=== PATIENT | male | born 1950 | race Caucasian/White ===

== ENCOUNTER 2016-07-17 20:31 | Observation (INO) | payer OTHER ==
[~2016-07-17] VITALS: Ht 175.3 cm; Wt 107.0 kg
[~2016-07-17 20:31] MED LIST: ANTIVERT 25 MG25 MG PO; DILTIAZEM HCL360 M1 PO; LISINOPRIL-HCT1 EAC2 PO; METOPROLOL SUCC50 MG PO; ZOFRAN ODT4 MG PO
--- NOTE | 2016-07-17 20:57 | NUR ---
TRIAGE; PT TO ED C/O CP AT AROUND 750PM, WAS AT A MEETING, AND STARTED TO FEEL PAIN IN THE CENTER OF HIS CHEST. DENIES ANY N/V. HAD SOME SOB AT THE TIME, STILL HAS SOME NOW UPON EXERTION.
--- NOTE | 2016-07-17 21:00 | NUR ---
MANUAL BP 184/114
--- NOTE | 2016-07-17 21:11 | NUR ---
PT TO XRAY AT THIS TIME VIA WHEELCHAIR.
[2016-07-17 21:27] LABS: ABSOLUTE BASOPHIL COUNT 0.1 /CUMM (0.0-0.2); ABSOLUTE EOSINOPHIL COUNT 0.2 /CUMM (0.0-0.7); ABSOLUTE GRANULOCYTE CT 6.5 /CUMM (1.4-6.5); ABSOLUTE LYMPH COUNT 2.7 /CUMM (1.2-3.4); ABSOLUTE MONOCYTE COUNT 0.9 /CUMM (0.10-0.60); BASOPHIL % 0.9 % (0.0-2.0); EOSINOPHIL % 2.1 % (0-5); GRANULOCYTE % 62.6 % (42.2-75.2); HEMATOCRIT 44.1 % (42-52); MEAN CORPUSCULAR HGB 28.5 PG (27.0-31.0); MEAN CORPUSCULAR HGB CONC 33.3 G/DL (33.0-37.0); MEAN CORPUSCULAR VOLUME 85.5 FL (80.0-94.0); MEAN PLATELET VOLUME 7.6 FL (7.4-10.4); PLATELET COUNT 313 /CUMM (130-400); RBC DISTRIBUTION WIDTH 14.6 % (11.5-14.5); RED BLOOD CELL CT 5.16 /CUMM (4.70-6.10); WHITE BLOOD CELL COUNT 10.4 /CUMM (4.8-10.8)
--- NOTE | 2016-07-17 21:27 | NUR ---
PT RETURNED TO ROOM. DENIES CP AT THIS TIME. PT ON HEART MONITOR.
--- NOTE | 2016-07-17 21:37 | NUR ---
RUBA MONTANO AT BEDSIDE FOR EVAL.
--- NOTE | 2016-07-17 21:40 | ED CARDIAC/CP/PALPITATIONS ---
History of Present Illness General Chief Complaint: Chest Pain Stated Complaint: CHEST PAIN Source: patient Exam Limitations: no limitations Vital Signs & Intake/Output Vital Signs & Intake/Output Vital Signs Date Time Temp Pulse Resp B/P Pulse O2 O2 Flow FiO2 Ox Delivery Rate 07/17 2317 67 18 160/88 97 Room Air 07/17 2132 66 190/102 98 Room Air 07/17 2100 99.5 70 18 184/114 97 Room Air ED Intake and Output 07/18 0000 07/17 1200 Intake Total 0 Output Total Balance 0 Intake, Oral 0 Allergies Coded Allergies: Penicillins (Intermediate, HIVES 09/05/15) Reconcile Medications DILTIAZEM HCL (Diltiazem 24HR Cd) 360 MG CAP.ER.24H 1 CAP PO DAILY HEART ( Reported) Lisinopril/Hydrochlorothiazide (Lisinopril-Hctz 10-12.5 MG Tab) 10 MG-12.5 MG TABLET 1 TAB PO DAILY HEART/BP (Reported) Metoprolol Succinate 50 MG TAB.ER.24H 1 TAB PO DAILY HEART (Reported) Naproxen Sodium (Aleve) 220 MG CAPSULE 2 CAP PO DAILY PAIN/INFLAMMATION ( Reported) Triamcinolone Acetonide 0.025 % CREAM..G. 1 MICHAEL TOP BID SCALP (Reported) apply to affected area(s) Triage Note: TRIAGE; PT TO ED C/O CP AT AROUND 750PM, WAS AT A MEETING, AND STARTED TO FEEL PAIN IN THE CENTER OF HIS CHEST. DENIES ANY N/V. HAD SOME SOB AT THE TIME, STILL HAS SOME NOW UPON EXERTION. Triage Nurses Notes Reviewed? yes Onset: Abrupt Duration: better Timing: single episode today Quality/Severity: pressure Location: substernal Radiation: no radiation Activities at Onset: none HPI: Patient is a 66-year-old male with a past medical history of hypertension who is compliant with his medications who presents the emergency room stating that 90 minutes prior to arrival while at rest at a meeting he had acute onset of chest heaviness lightheaded sensation, PALE complexion nausea and dizziness. Patient states that the chest heaviness has improved from 8 out of 10 to currently 4/10 and all other symptoms have resolved. No aspirin was administered today. Patient did not take any medications for his symptoms. Patient denies any smoking history Denies any coronary artery disease history (CHARMAINE YEH,MARIA INES) Past History Travel History Traveled to [place] past 21 day No Medical History Any Pertinent Medical History? 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 No (MARIA INES SILVA) Review of Systems Review of Systems Constitutional: Reports: no symptoms. EENTM: Reports: no symptoms. Respiratory: Reports: see HPI. Cardiovascular: Reports: see HPI, chest pain. GI: Reports: no symptoms. Genitourinary: Reports: no symptoms. Musculoskeletal: Reports: no symptoms. Skin: Reports: no symptoms. Neurological/Psychological: Reports: no symptoms. Hematologic/Endocrine: Reports: no symptoms. Immunologic/Allergic: Reports: no symptoms. All Other Systems: Reviewed and Negative (MARIA INES SILVA) Physical Exam Physical Exam General Appearance: no apparent distress, alert, comfortable Cardiovascular: regular rate/rhythm Comments: Well-developed well-nourished person in no acute distress HEENT: Normal EENT exam, Neck: Supple, no lymphadenopathy, normal range of motion without pain or tenderness Back: Nontender, no CVA tenderness. Cardiovascular: Regular rate and rhythms no murmurs rubs or gallops, normal JVP Respiratory: Chest nontender. No respiratory distress.breath sounds clear to auscultation bilaterally Abdomen: Soft, nontender nondistended, no appreciable organomegaly. Normal bowel sounds. No ascites Extremity: No edema, no calf tenderness to palpation, normal and equal pulses. Neuro: Alert oriented x3, motor sensory normal, Skin: No appreciable rash on exposed skin, skin is warm and dry. Psych: Mood and affect is normal, memory and judgment is normal. Core Measures ACS in differential dx? Yes ASA ordered for poss ACS? Yes-ordered Severe Sepsis Present: No Septic Shock Present: No (MARIA INES SILVA) Progress Differential Diagnosis: AMI, aortic dissection, atrial fibrillation, cholecystitis, CHF/pulm edema, costochondritis, hyperkalemia, hypovolemia, hyperthyroid, hyperventilation, intracranial hemorrhage, musculoskeletal pain, myocarditis, pancreatitis, pericarditis, pneumonia, pneumothorax, PSVT, pulmonary embolism, PUD/GERD, PVCs/PACs, respiratory failure, rib fracture, sepsis, unstable angina, V-fib/V-Tach, WPW syndrome Plan of Care: Orders Procedure Date/time Status Heart Healthy Diet 07/18 B Active TROPONIN LEVEL 07/18 0900 Active EKG 07/18 0900 Active ECHOCARDIOGRAM 07/18 0800 Active PHOSPHORUS 07/18 0600 Active MAGNESIUM 07/18 0600 Active LIPID PANEL 07/18 0600 Active CBC WITHOUT DIFFERENTIAL 07/18 0600 Active BASIC ELECTROLYTES PLUS BUN&CR 07/18 0600 Active TROPONIN LEVEL 07/18 0300 Active EKG 07/18 0300 Active Pathway - chart 07/18 0057 Active Admit to inpatient 07/18 0056 Active Pathway - chart 07/18 0055 Active House Staff 07/18 0055 Active Patient Data 07/18 0055 Active Code Status 07/18 0055 Active Misc Message 07/18 0025 Active ED Holding Orders 07/18 0025 Active Vital Signs 07/18 0025 Active Code Status 07/18 0025 Complete VTE Mechanical Prophylaxis 07/18 UNK Active MISTAKE 07/18 UNK Active Telemetry/Transplant Nurse Practitioner 07/18 UNK Active Patient Data 07/17 2315 Active Add-on Test (ER Only) 07/17 2139 Active THYROID STIMULATING HORMONE 07/17 2110 Complete THYROXINE 07/17 2110 Complete MAGNESIUM 07/17 2110 Complete TROPONIN LEVEL 07/17 2057 Complete COMPREHENSIVE METABOLIC PANEL 07/17 2057 Complete CBC WITHOUT DIFFERENTIAL 07/17 2057 Complete EKG 07/17 2033 Active Current Medications Sig/Maggie Start time Last Medication Dose Stop Time Status Admin Diltiazem HCl 360 MG DAILY 07/18 1000 UNVr (Cardizem CD) Enoxaparin Sodium 40 MG DAILY 07/18 1000 UNVr (Lovenox) Lisinopril 10 MG DAILY 07/18 1000 UNVr (Prinivil) Metoprolol Succinate 50 MG DAILY 07/18 1000 UNVr (Toprol XL) Naproxen 500 MG DAILY 07/18 1000 UNVr (Naprosyn) Acetaminophen 650 MG Q6P PRN 07/18 99 UNVr (Tylenol) Oxycodone/ 1 TAB Q6P PRN 07/18 99 UNVr Acetaminophen (Percocet) Oxycodone/ 2 TAB Q6P PRN 07/18 0100 UNVr Acetaminophen (Percocet) Laboratory Tests 07/17/16 2111: Anion Gap 14, Estimated GFR > 60, BUN/Creatinine Ratio 19.2, Glucose 103 H, Calcium 9.7, Magnesium 2.0, Total Bilirubin 0.5, AST 26, ALT 28, Alkaline Phosphatase 81, Troponin I < 0.01, Total Protein 7.9, Albumin 4.3, Globulin 3.6, Albumin/Globulin Ratio 1.2, TSH 2.930, Thyroxine (T4) 6.2, CBC w Diff NO MAN DIFF REQ, RBC 5.16, MCV 85.5, MCH 28.5, RDW 14.6 H, MPV 7.6, Gran % 62.6, Lymphocytes % 25.9, Monocytes % 8.5, Eosinophils % 2.1, Basophils % 0.9, Absolute Granulocytes 6.5, Absolute Lymphocytes 2.7, Absolute Monocytes 0.9 H, Absolute Eosinophils 0.2, Absolute Basophils 0.1, PUBS MCHC 33.3 Patient initially complained of moderate 4/10 pain sublingual nitroglycerin was administered and patient then had improvement of 2 out of 10 pain in which another sublingual nitroglycerin was administered and had 1/10 pain. Patient had unremarkable EKG and troponin was unremarkable chest x-ray was unremarkable discussed patient and initial presentation of labs and EKG with Dr. Tobias who advised patient to be admitted to telemetry observation for concerns of rule out ACS. Aspirin was administered. Patient was discussed with PT ALL results and agrees with disposition and plan. Cardiology was paged prior to admission Discussed admission with Dr. Nina will also evaluate patient for admission (MARIA INES SILVA) Diagnostic Imaging: Viewed by Me: Radiology Read. CXR Impression: no acute abnormality, no infiltrates Initial ED EK BPM NORMAL SINUS RHYTHM Comments: PATIENT: RADHA RAMOS PRESENT AGE: 66 PATIENT ACCOUNT NO: [id number] : 50 LOCATION: [facility] ORDERING PHYSICIAN: ROBERTO NINA MD SERVICE DATE: 07/17/16 EXAM TYPE: RAD - XRY-CHEST XRAY, PA AND LATERAL EXAMINATION: XR CHEST CLINICAL INFORMATION: Chest pain and shortness of breath. COMPARISON: No prior imaging is available for comparison at time of dictation. TECHNIQUE: AP and lateral views of the chest were obtained. FINDINGS: The lung jurado are moderately well expanded and appear clear bilaterally. The cardiac silhouette is normal. The aortic arch is unfolded. There are no pleural effusions or pneumothorax. The central pulmonary vasculature is unremarkable. The hilar regions appear normal. There are multilevel degenerative changes in the thoracic spine. Bone mineralization is diffusely decreased, consistent with osteopenia. IMPRESSION: 1. There are no acute cardiopulmonary findings. (MARIA INES SILVA) Comments: 07/18/2016 1:31:11 AM patient's case discussed by me with Dr. Perez, including lab test results and EKG findings. (ROBERTO NINA MD) Departure Departure Disposition: STILL A PATIENT Condition: Stable Clinical Impression Primary Impression: Chest pain Secondary Impressions: Hypertension Referrals: KIRILL TOBIAS MD (PCP/Family) Departure Forms: Customer Survey General Discharge Information Observation Note Spoke With: KIRILL TOBIAS MD Physician Advisor Notified: GONZALES RAMSEY,FIORDALIZA [place] Patient In: Non-ED OBS Care Area Rationale for Observation: My rational for observation is as follows [discussed patient with Dr. Tobias who agrees with telemetry observation for rule out acute coronary syndrome. Patient requires cardiology consultation, repeat labs telemetry monitoring outpatient treatment this time due to improvement of chest heaviness with nitroglycerin and presenting complaints would be medically harmful]. (MARIA INES SILVA) PA/NET DEVELOPER WITH [facility] Co-Sign Statement Statement: ED Attending supervision documentation- [X] I saw and evaluated the patient. I have also reviewed all the pertinent lab results and diagnostic results. I agree with the findings and the plan of care as documented in the PA's/NET DEVELOPER WITH [facility]CF's documentation. [] I have reviewed the ED Record and agree with the PA's/NET DEVELOPER WITH [facility]CF's documentation. [] Additions or exceptions (if any) to the PAs/NET DEVELOPER WITH [facility]'s note and plan are summarized below: [] (SILVER RAMSEY,ROBERTO Gonzalez) Critical Care Note Critical Care Note Critical Care Time: 30-74 min (MARIA INES SILVA)
[2016-07-17] MEDS ORDERED: TRIAMCINOLONE A15 GM TOP (21:52)
[2016-07-17] MEDS ORDERED: ALEVE220 M1 PO (21:53)
--- NOTE | 2016-07-17 22:05 | NUR ---
PT MEDICATED WITH 325MG ASPIRIN PO AND 0.4MG NITRO SL. WILL REEVALUATE PAIN AND BP.
--- NOTE | 2016-07-17 22:13 | NUR ---
BP 147/89 AND HR 78 AT THIS TIME. PT STATES CP IS 2/10.
--- NOTE | 2016-07-17 22:14 | NUR ---
PT MEDICATED WITH 0.4MG NITRO SL. WILL REEVALUATE.
--- NOTE | 2016-07-17 22:16 | NUR ---
RUBA MONTANO AT BEDSIDE.
--- NOTE | 2016-07-17 22:21 | NUR ---
PT STATES CP IS 1 AT THIS TIME.
--- NOTE | 2016-07-17 23:21 | History & Physical ---
General Information and HPI Allergies/Medications Allergies: Coded Allergies: Penicillins (Intermediate, HIVES 09/05/15) Home Med list DILTIAZEM HCL (Diltiazem 24HR Cd) 360 MG CAP.ER.24H 1 CAP PO DAILY HEART ( Reported) Lisinopril/Hydrochlorothiazide (Lisinopril-Hctz 10-12.5 MG Tab) 10 MG-12.5 MG TABLET 1 TAB PO DAILY HEART/BP (Reported) Metoprolol Succinate 50 MG TAB.ER.24H 1 TAB PO DAILY HEART (Reported) Naproxen Sodium (Aleve) 220 MG CAPSULE 2 CAP PO DAILY PAIN/INFLAMMATION ( Reported) Triamcinolone Acetonide 0.025 % CREAM..G. 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 self Services at Home: None Primary Language: Albanian Functional Ability ADLs Independent: dressing, eating, toileting, bathing. Ambulation: independent Core Measures/Miscellaneous Severe Sepsis Severe Sepsis Present: No Septic Shock Septic Shock Present: No
--- NOTE | 2016-07-17 23:42 | History & Physical ---
BRENT BADILLO 07/17/16 2341: General Information and HPI MD Statement: I have seen and personally examined RADHA LOONEY and documented this H&P. The patient is a 66 year old M who presented with a patient stated chief complaint of [chest pain]. Source of Information: patient Exam Limitations: no limitations History of Present Illness: Mr Looney is a 66-year-old gentleman with a PMH of HTN, previous right hernia repair, vertigo, right knee arthritis who presents with complaints of sudden onset chest pain. He states that he was seated during mormonism meeting this evening at approximately 8 PM when he had sudden onset of substernal chest pain that he described as an elephant sitting on his chest, nonradiating, 02/14, associated palpitations that persisted until arrival in the ED and improved after administration of nitroglycerin. He does report having dinner 2 hours prior with noticeable belching that persisted until the mormonism meeting. He denies any headaches, blurred vision, difficulty swallowing, nausea, arm weakness/heaviness, abdominal pain, recent lower extremity swelling/weight gain. He he endorses an episode of noticeable dyspnea with exertion while ambulating last which resolved with rest. At his baseline he is able to walk without any significant shortness of breath. He denies any symptoms of PND but does sleep with 4 pillows (over 20 years). Allergies/Medications Allergies: Coded Allergies: Penicillins (Intermediate, HIVES 09/05/15) Home Med list DILTIAZEM HCL (Diltiazem 24HR Cd) 360 MG CAP.ER.24H 1 CAP PO DAILY HEART ( Reported) Lisinopril/Hydrochlorothiazide (Lisinopril-Hctz 10-12.5 MG Tab) 10 MG-12.5 MG TABLET 1 TAB PO DAILY HEART/BP (Reported) Metoprolol Succinate 50 MG TAB.ER.24H 1 TAB PO DAILY HEART (Reported) Naproxen Sodium (Aleve) 220 MG CAPSULE 2 CAP PO DAILY PAIN/INFLAMMATION ( Reported) Triamcinolone Acetonide 0.025 % CREAM..G. 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 self Services at Home: None Primary Language: Telugu Functional Ability ADLs Independent: dressing, eating, toileting, bathing. Ambulation: independent Review of Systems Review of Systems Constitutional: Reports: see HPI. EENTM: Reports: no symptoms. Cardiovascular: Reports: see HPI. Respiratory: Reports: see HPI. GI: Reports: no symptoms. Genitourinary: Reports: no symptoms. Musculoskeletal: Reports: no symptoms. Exam & Diagnostic Data Last 24 Hrs of Vital Signs/I&O Vital Signs Date Time Temp Pulse Resp B/P Pulse O2 O2 Flow FiO2 Ox Delivery Rate 07/18 0152 67 18 152/82 95 Room Air 07/17 2317 67 18 160/88 97 Room Air 07/17 2132 66 190/102 98 Room Air 07/17 2100 99.5 70 18 184/114 97 Room Air Intake & Output 07/18 0800 07/18 0000 07/17 1600 Intake Total 0 Output Total Balance 0 Intake, Oral 0 Physical Exam General Appearance Alert, Oriented X3, Cooperative, No Acute Distress Skin No Breakdown HEENT PERRLA, EOMI, Mucous Membr. moist/pink, BLister on the proxima; aspect of the tongue Cardiovascular Regular Rate, Normal S1, Normal S2 Lungs Clear to Auscultation, Normal Air Movement Abdomen Normal Bowel Sounds, Soft, No Tenderness Neurological Normal Speech, Normal Tone, Sensation Intact Extremities Normal Pulses, 1+ pitting edema BL LE, R knee in flexible brace at this time Vascular Pulses Symmetrical Last 24 Hrs of Labs/Julio: Laboratory Tests 07/17/162110: Anion Gap 14, Estimated GFR > 60, BUN/Creatinine Ratio 19.2, Glucose 103 H, Calcium 9.7, Magnesium 2.0, Total Bilirubin 0.5, AST 26, ALT 28, Alkaline Phosphatase 81, Troponin I < 0.01, Total Protein 7.9, Albumin 4.3, Globulin 3.6, Albumin/Globulin Ratio 1.2, TSH 2.930, Thyroxine (T4) 6.2, CBC w Diff NO MAN DIFF REQ, RBC 5.16, MCV 85.5, MCH 28.5, RDW 14.6 H, MPV 7.6, Gran % 62.6, Lymphocytes % 25.9, Monocytes % 8.5, Eosinophils % 2.1, Basophils % 0.9, Absolute Granulocytes 6.5, Absolute Lymphocytes 2.7, Absolute Monocytes 0.9 H, Absolute Eosinophils 0.2, Absolute Basophils 0.1, PUBS MCHC 33.3 Diagnostic Data EKG Results Times rhythm, HR 66. LVH. QTC 420 CXR Results here are no acute cardiopulmonary findings. Assessment/Plan Assessment: 66-year-old gentleman with a PMH of HTN, previous right hernia repair, vertigo, right knee arthritis who presents with complaints of sudden onset chest pain that started while seated at approximately 8 PM, substernal pressure that he describes as an elephant sitting on his chest and nonradiating, 8/10, associated with palpitations. Pain was relieved with NTG on arrival in the ED. He reports associated belching after dinner ROS: Mild exertional dyspnea last that resolved with rest. He denies any headaches, blurred vision, difficulty swallowing, nausea, arm weakness/ heaviness, abdominal pain, recent lower extremity swelling/weight gain. VS: BP 1 8414, HR 70, RR 18, SPO2 97% on RA, T 99.5. Pertinent labs: H&H 14.7/44.1, platelets 313, sodium 139, potassium 5.0, BUN/CR 23/1.2 Troponin: <0.01 Problem list: 1. Unstable angina 2. Core Measures/Miscellaneous Severe Sepsis Severe Sepsis Present: No Septic Shock Septic Shock Present: No
--- NOTE | 2016-07-18 00:16 | NUR ---
HOUSESTAFF AT BEDSIDE.
--- NOTE | 2016-07-18 02:57 | History & Physical ---
General Information and HPI MD Statement: I have seen and personally examined RADHA LOONEY and documented this H&P. The patient is a 66 year old M who presented with a patient stated chief complaint of [chest pain]. Source of Information: patient Exam Limitations: no limitations History of Present Illness: Mr Looney is a 66-year-old gentleman with a PMH of HTN, previous right hernia repair, vertigo, right knee arthritis who presents with complaints of sudden onset chest pain. He states that he was seated during caodaism meeting this evening at approximately 8 PM when he had sudden onset of substernal chest pain that he described as an elephant sitting on his chest, nonradiating, 02/14, associated palpitations that persisted until arrival in the ED and improved after administration of nitroglycerin. He does report having dinner 2 hours prior with noticeable belching that persisted until the caodaism meeting. He denies any headaches, blurred vision, difficulty swallowing, nausea, arm weakness/heaviness, abdominal pain, recent lower extremity swelling/weight gain. He he endorses an episode of noticeable dyspnea with exertion while ambulating last which resolved with rest. At his baseline he is able to walk without any significant shortness of breath. He denies any symptoms of PND but does sleep with 4 pillows (over 20 years). Allergies/Medications Allergies: Coded Allergies: Penicillins (Intermediate, HIVES 09/05/15) Home Med list DILTIAZEM HCL (Diltiazem 24HR Cd) 360 MG CAP.ER.24H 1 CAP PO DAILY HEART ( Reported) Lisinopril/Hydrochlorothiazide (Lisinopril-Hctz 10-12.5 MG Tab) 10 MG-12.5 MG TABLET 1 TAB PO DAILY HEART/BP (Reported) Metoprolol Succinate 50 MG TAB.ER.24H 1 TAB PO DAILY HEART (Reported) Naproxen Sodium (Aleve) 220 MG CAPSULE 2 CAP PO DAILY PAIN/INFLAMMATION ( Reported) Triamcinolone Acetonide 0.025 % CREAM..G. 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 self Services at Home: None Primary Language: Tunisian Functional Ability ADLs Independent: dressing, eating, toileting, bathing. Ambulation: independent Review of Systems Review of Systems Constitutional: Reports: see HPI. EENTM: Reports: see HPI. Cardiovascular: Reports: see HPI. Respiratory: Reports: see HPI. GI: Reports: see HPI. Genitourinary: Reports: no symptoms. Musculoskeletal: Reports: see HPI. Exam & Diagnostic Data Last 24 Hrs of Vital Signs/I&O Vital Signs Date Time Temp Pulse Resp B/P Pulse O2 O2 Flow FiO2 Ox Delivery Rate 07/18 0152 67 18 152/82 95 Room Air 07/17 2317 67 18 160/88 97 Room Air 07/17 2132 66 190/102 98 Room Air 07/17 2100 99.5 70 18 184/114 97 Room Air Intake & Output 07/18 0800 07/18 0000 07/17 1600 Intake Total 0 Output Total Balance 0 Intake, Oral 0 Physical Exam General Appearance Alert, Cooperative, No Acute Distress HEENT PERRLA, EOMI, Mucous Membr. moist/pink, BLister on proximal aspect of his mouth Cardiovascular Regular Rate, Normal S1, Normal S2 Lungs Clear to Auscultation, Normal Air Movement Abdomen Normal Bowel Sounds, Soft, No Tenderness Neurological Normal Speech, Normal Tone, Sensation Intact Extremities Normal Pulses, 1+ pitting edema BL LE Vascular Pulses Symmetrical Last 24 Hrs of Labs/Julio: Laboratory Tests 07/17/162110: Anion Gap 14, Estimated GFR > 60, BUN/Creatinine Ratio 19.2, Glucose 103 H, Calcium 9.7, Magnesium 2.0, Total Bilirubin 0.5, AST 26, ALT 28, Alkaline Phosphatase 81, Troponin I < 0.01, Total Protein 7.9, Albumin 4.3, Globulin 3.6, Albumin/Globulin Ratio 1.2, TSH 2.930, Thyroxine (T4) 6.2, CBC w Diff NO MAN DIFF REQ, RBC 5.16, MCV 85.5, MCH 28.5, RDW 14.6 H, MPV 7.6, Gran % 62.6, Lymphocytes % 25.9, Monocytes % 8.5, Eosinophils % 2.1, Basophils % 0.9, Absolute Granulocytes 6.5, Absolute Lymphocytes 2.7, Absolute Monocytes 0.9 H, Absolute Eosinophils 0.2, Absolute Basophils 0.1, PUBS MCHC 33.3 Diagnostic Data EKG Results Times rhythm, HR 66. LVH. QTC 420 CXR Results No acute cardio palmar findings Assessment/Plan Assessment: 66-year-old gentleman with a PMH of HTN, previous right hernia repair, vertigo, right knee arthritis who presents with complaints of sudden onset chest pain that started while seated at approximately 8 PM, substernal pressure that he describes as an elephant sitting on his chest and nonradiating, 02/14, associated with palpitations. Pain was relieved with NTG on arrival in the ED. He reports associated belching after dinner ROS: Mild exertional dyspnea last that resolved with rest. He denies any headaches, blurred vision, difficulty swallowing, nausea, arm weakness/ heaviness, abdominal pain, recent lower extremity swelling/weight gain. VS: BP 1 8414, HR 70, RR 18, SPO2 97% on RA, T 99.5. Pertinent labs: H&H 14.7/44.1, platelets 313, sodium 139, potassium 5.0, BUN/CR 23/1.2 Troponin: <0.01 Problem list: 1. Unstable angina 2. Hypertension 3. Vertigo Plan: * Admit to telemetry floor for continuous Monitoring. Serial EKG and troponins: 0300 hrs., 0900 hrs. patient received aspirin 325 mg, sublingual nitroglycerin with resolution of chest pain. We'll continue him on metoprolol 50 mg daily, Cardizem 360 * Echocardiogram in the a.m. * Cardio consult in the a.m. (Gem Hawk MD) * A.m.: Lipid profile, hemoglobin A1c * Orthostatics in the morning * Heart healthy diet * DVT prophylaxis: Lovenox 40 mg subcutaneous * CODE STATUS: DNR/DNI As Ranked By This Provider Problem List: 1. Chest pain 2. Hypertension Core Measures/Miscellaneous Acute Coronary Syndrome ACS Diagnosis: No Cerebrovascular Accident CVA/TIA Diagnosis: No Congestive Heart Failure CHF Diagnosis: No Venous Thromboembolism VTE Risk Factors: Age > 40 VTE Prophylaxis Ordered Inpt: Pharm- Lovenox No [facility] VTE prophylaxis d/t: No contraindications No VTE Pharm Prophylaxis d/t: No contraindications VTE Diagnosis: No VTE Type: NONE VTE Confirmed by (Test): NONE Severe Sepsis Severe Sepsis Present: No Septic Shock Septic Shock Present: No Miscellaneous Documentation Attending Case Discussed With: KIRILL ESPARZA MD Primary Care Physician: KIRILL ESPARZA MD Patient sees these Specialists Gem Hawk MD Level of Patient Care: Telemetry Resident Review Statement Resident Statement: examined this patient, discussed with pharmacist intern, agreed with pharmacist intern, discussed with family, reviewed EMR data (avail), discussed with nursing , reviewed images
[2016-07-18 06:03] LABS: ABSOLUTE BASOPHIL COUNT 0.1 /CUMM (0.0-0.2); ABSOLUTE EOSINOPHIL COUNT 0.3 /CUMM (0.0-0.7); ABSOLUTE GRANULOCYTE CT 4.8 /CUMM (1.4-6.5); ABSOLUTE LYMPH COUNT 2.4 /CUMM (1.2-3.4); ABSOLUTE MONOCYTE COUNT 0.8 /CUMM (0.10-0.60); GRANULOCYTE % 57.5 % (42.2-75.2); HEMATOCRIT 40.7 % (42-52); MEAN CORPUSCULAR HGB 28.8 PG (27.0-31.0); MEAN CORPUSCULAR HGB CONC 33.9 G/DL (33.0-37.0); MEAN CORPUSCULAR VOLUME 84.8 FL (80.0-94.0); MEAN PLATELET VOLUME 7.5 FL (7.4-10.4); PLATELET COUNT 281 /CUMM (130-400); RBC DISTRIBUTION WIDTH 14.8 % (11.5-14.5); WHITE BLOOD CELL COUNT 8.3 /CUMM (4.8-10.8)
[2016-07-18 06:06] VITALS: BP 147/92
--- NOTE | 2016-07-18 08:37 | NUR ---
EKG DONE AND GIVEN TO HOUSESTAFF
--- NOTE | 2016-07-18 08:37 | NUR ---
HOUSE STAFF AT BEDSIDE
--- NOTE | 2016-07-18 10:32 | NUR ---
PT ALERT AND ORIENTED. NSR ON MONITOR. DENIES CHEST PAIN. HR:56-60. REFUSED LOVENOX. ALPS ON. WILL CONTINUE TO MONITOR.
--- NOTE | 2016-07-18 11:13 | PN- Housestaff ---
Subjective Follow-up For: A typical angina Subjective: Patient was seen and examined this morning. He has no chest pain or belching since admission and feels very well today. He ambulated in the hallway. He denies any heart racing and faintness. He mentioned headache after taking the nitroglycerin but it resolved by the time we examined him. He is in no acute distress and vitals are stable. Review of Systems Constitutional: Denies: no symptoms. Objective Last 24 Hrs of Vital Signs/I&O Vital Signs Date Time Temp Pulse Resp B/P Pulse O2 O2 Flow FiO2 Ox Delivery Rate 07/18 1419 97.9 84 16 168/95 94 Room Air 07/18 1255 98.7 62 16 146/60 96 Room Air 07/18 0940 85 150/86 07/18 0722 98.0 81 147/92 94 07/18 0606 98.0 54 20 147/92 98 Room Air 07/18 0152 67 18 152/82 95 Room Air 07/17 2317 67 18 160/88 97 Room Air 07/17 2132 66 190/102 98 Room Air 07/17 2100 99.5 70 18 184/114 97 Room Air Intake & Output 07/18 1600 07/18 0800 07/18 0000 Intake Total 40 120 0 Output Total Balance 40 120 0 Intake, Oral 40 120 0 Patient 107.048 kg Weight Physical Exam General Appearance: Alert, Oriented X3, Cooperative, No Acute Distress Skin: No Rashes, No Breakdown, No Significant Lesion HEENT: Atraumatic, PERRLA, EOMI, Mucous Membr. moist/pink Neck: Supple Cardiovascular: Regular Rate, Normal S1, Normal S2, No Murmurs Lungs: Clear to Auscultation, Normal Air Movement Abdomen: Normal Bowel Sounds, Soft, No Tenderness Neurological: Normal Gait, Normal Speech, Strength at 5/5 X4 Ext, Normal Tone, Sensation Intact, Cranial Nerves 3-12 NL, Reflexes 2+ Extremities: No Clubbing, No Cyanosis, No Edema, Normal Pulses Assessment/Plan Assessment: 66-year-old gentleman with a history of HTN, previous right hernia repair, vertigo, right knee arthritis presented with complaints of sudden onset chest pain. Problem list 1. Chest pain syndrome -Patient has been asymptomatic since admission. ECG appears normal and troponins are negative. -Patient recommended to have an ECHO and pharmacologic nuclear stress test within the next week as per cardiologists advice. -Follow up with Consultative Sales Associate within one week 2. Hypertension -Continue antihypertensives home dose Patient is for discharge today to follow up with cardiology Dr. Hawk. Problem List: 1. Chest pain Pain Ratin Pain Location: n/a Pain Goal: Remain pain free Pain Plan: see medication Tomorrow's Labs & Rationales: none
--- NOTE | 2016-07-18 12:10 | NUR ---
DR GONZALEZ CALLED, MESSAGE LEFT, REQUESTING UPDATE ON PLAN. TOLD FAMILY PLAN FOR OUTPATIENT ECHO THIS WEEK AND POSSIBLE DISCHARGE. AWAITING CALL BACK
--- NOTE | 2016-07-18 12:50 | Cons- Cardiology ---
General Information and HPI Consulting Request Date of Consult: 07/18/16 Requested By: KIRILL ESPARZA MD Reason for Consult: Chest pain, rule out acute coronary syndrome Source of Information: patient, family, old records History of Present Illness: Mr Looney is a 66-year-old gentleman with a PMH of HTN, previous right hernia repair, vertigo, right knee arthritis who presents with complaints of sudden onset chest pain. He states that he was seated during religion meeting this evening at approximately 8 PM when he had sudden onset of substernal chest pain that he described as an elephant sitting on his chest, nonradiating, 02/14, associated palpitations that persisted until arrival in the ED and improved after administration of nitroglycerin x 2. He does report having dinner 2 hours prior (stuffed peppers) with noticeable belching that persisted until the religion meeting. The patient has been asymptomatic otherwise since admission. He denies any episodes of similar symptoms prior to yesterday or since that time. He has no activity-induced symptoms. This morning, he has ambulated in the hallway with no recurrence of any symptoms. Allergies/Medications Allergies: Coded Allergies: Penicillins (Intermediate, HIVES 09/05/15) Home Med List: DILTIAZEM HCL (Diltiazem 24HR Cd) 360 MG CAP.ER.24H 1 CAP PO DAILY HEART ( Reported) Lisinopril/Hydrochlorothiazide (Lisinopril-Hctz 10-12.5 MG Tab) 10 MG-12.5 MG TABLET 1 TAB PO DAILY HEART/BP (Reported) Metoprolol Succinate 50 MG TAB.ER.24H 1 TAB PO DAILY HEART (Reported) Naproxen Sodium (Aleve) 220 MG CAPSULE 2 CAP PO DAILY PAIN/INFLAMMATION ( Reported) Triamcinolone Acetonide 0.025 % CREAM..G. 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 self Services at Home: None Primary Language: Tamazight Smoking Status: Never Smoked Functional Ability ADLs Independent: dressing, eating, toileting, bathing. Ambulation: independent Exam & Diagnostic Data Vital Signs and I&O Vital Signs Date Time Temp Pulse Resp B/P Pulse O2 O2 Flow FiO2 Ox Delivery Rate 07/18 0940 85 150/86 07/18 0722 98.0 81 147/92 94 07/18 0606 98.0 54 20 147/92 98 Room Air 07/18 0152 67 18 152/82 95 Room Air 07/17 2317 67 18 160/88 97 Room Air 07/17 2132 66 190/102 98 Room Air 07/17 2100 99.5 70 18 184/114 97 Room Air Intake & Output 07/18 1600 07/18 0800 07/18 0000 07/17 1600 07/17 0800 07/17 0000 Intake Total 120 0 Output Total Balance 120 0 Intake, Oral 120 0 Patient 236 lb Weight Physical Exam: General Appearance Alert, Cooperative, No Acute Distress HEENT PERRLA, EOMI, Mucous Membr. moist/pink, BLister on proximal aspect of his mouth Cardiovascular Regular Rate, Normal S1, Normal S2 Lungs Clear to Auscultation, Normal Air Movement Abdomen Normal Bowel Sounds, Soft, No Tenderness Neurological Normal Speech, Normal Tone, Sensation Intact Extremities Normal Pulses, 1+ pitting edema BL LE Vascular Pulses Symmetrical Labs/Julio Results: Laboratory Tests 07/18 07/18 07/18 0958 0550 0305 Chemistry Sodium (137 - 145 mmol/L) 140 Potassium (3.5 - 5.1 mmol/L) 4.8 Chloride (98 - 107 mmol/L) 101 Carbon Dioxide (22 - 30 mmol/L) 27 Anion Gap (5 - 16) 12 BUN (9 - 20 mg/dL) 22 H Creatinine (0.7 - 1.2 mg/dL) 1.0 Estimated GFR (>60 ml/min) > 60 BUN/Creatinine Ratio (7 - 25 %) 22.0 Phosphorus (2.5 - 4.5 mg/dL) 4.6 H Magnesium (1.6 - 2.3 mg/dL) 2.0 Troponin I (<0.11 ng/ml) < 0.01 < 0.01 Triglycerides (<150 mg/dL) 143 Cholesterol (< 200 MG/DL) 205 H LDL Cholesterol, Calc (65 - 129 mg/dL) 134 H HDL Cholesterol (40 - 60 mg/dL) 43 Cholesterol/HDL Ratio (0.00 - 4.88 %) 5 H Hematology CBC w Diff NO MAN DIFF REQ WBC (4.8 - 10.8 /CUMM) 8.3 RBC (4.70 - 6.10 /CUMM) 4.80 Hgb (14.0 - 18.0 G/DL) 13.8 L Hct (42 - 52 %) 40.7 L MCV (80.0 - 94.0 FL) 84.8 MCH (27.0 - 31.0 PG) 28.8 RDW (11.5 - 14.5 %) 14.8 H Plt Count (130 - 400 /CUMM) 281 MPV (7.4 - 10.4 FL) 7.5 Gran % (42.2 - 75.2 %) 57.5 Lymphocytes % (20.5 - 51.1 %) 28.5 Monocytes % (1.7 - 9.3 %) 10.0 H Eosinophils % (0 - 5 %) 3.0 Basophils % (0.0 - 2.0 %) 1.0 Absolute Granulocytes (1.4 - 6.5 /CUMM) 4.8 Absolute Lymphocytes (1.2 - 3.4 /CUMM) 2.4 Absolute Monocytes (0.10 - 0.60 /CUMM) 0.8 H Absolute Eosinophils (0.0 - 0.7 /CUMM) 0.3 Absolute Basophils (0.0 - 0.2 /CUMM) 0.1 PUBS MCHC (33.0 - 37.0 G/DL) 33.9 07/17 07/17 2111 2111 Chemistry Sodium (137 - 145 mmol/L) 139 Potassium (3.5 - 5.1 mmol/L) 5.0 Chloride (98 - 107 mmol/L) 98 Carbon Dioxide (22 - 30 mmol/L) 28 Anion Gap (5 - 16) 14 BUN (9 - 20 mg/dL) 23 H Creatinine (0.7 - 1.2 mg/dL) 1.2 Estimated GFR (>60 ml/min) > 60 BUN/Creatinine Ratio (7 - 25 %) 19.2 Glucose (65 - 99 mg/dL) 103 H Hemoglobin A1c Pending Calcium (8.4 - 10.2 mg/dL) 9.7 Magnesium (1.6 - 2.3 mg/dL) 2.0 Total Bilirubin (0.2 - 1.3 mg/dL) 0.5 AST (17 - 59 U/L) 26 ALT (21 - 72 U/L) 28 Alkaline Phosphatase (< 127 U/L) 81 Troponin I (<0.11 ng/ml) < 0.01 Total Protein (6.3 - 8.2 g/dL) 7.9 Albumin (3.5 - 5.0 g/dL) 4.3 Globulin (1.9 - 4.2 gm/dL) 3.6 Albumin/Globulin Ratio (1.1 - 2.2 %) 1.2 TSH (0.270 - 4.200 uIU/mL) 2.930 Thyroxine (T4) (4.5 - 10.9 ug/dL) 6.2 Hematology CBC w Diff NO MAN DIFF REQ WBC (4.8 - 10.8 /CUMM) 10.4 RBC (4.70 - 6.10 /CUMM) 5.16 Hgb (14.0 - 18.0 G/DL) 14.7 Hct (42 - 52 %) 44.1 MCV (80.0 - 94.0 FL) 85.5 MCH (27.0 - 31.0 PG) 28.5 RDW (11.5 - 14.5 %) 14.6 H Plt Count (130 - 400 /CUMM) 313 MPV (7.4 - 10.4 FL) 7.6 Gran % (42.2 - 75.2 %) 62.6 Lymphocytes % (20.5 - 51.1 %) 25.9 Monocytes % (1.7 - 9.3 %) 8.5 Eosinophils % (0 - 5 %) 2.1 Basophils % (0.0 - 2.0 %) 0.9 Absolute Granulocytes (1.4 - 6.5 /CUMM) 6.5 Absolute Lymphocytes (1.2 - 3.4 /CUMM) 2.7 Absolute Monocytes (0.10 - 0.60 /CUMM) 0.9 H Absolute Eosinophils (0.0 - 0.7 /CUMM) 0.2 Absolute Basophils (0.0 - 0.2 /CUMM) 0.1 PUBS MCHC (33.0 - 37.0 G/DL) 33.3 Diagnostic Data EKG Results Normal sinus rhythm with nonspecific ST-T changes, unchanged from previously CXR Results FINDINGS: The lung jurado are moderately well expanded and appear clear bilaterally. The cardiac silhouette is normal. The aortic arch is unfolded. There are no pleural effusions or pneumothorax. The central pulmonary vasculature is unremarkable. The hilar regions appear normal. There are multilevel degenerative changes in the thoracic spine. Bone mineralization is diffusely decreased, consistent with osteopenia. IMPRESSION: 1. There are no acute cardiopulmonary findings. Assessment/Plan Assessment/Plan Assessment: 1. Chest pain syndrome 2. Hypertension 3. Heart murmur 4. Ventricular ectopy Recommendations: -The patient remains asymptomatic at the present time. His ECG shows no significant changes from previously and his troponins are negative. At the present time, it is unclear whether the symptoms were GI in nature or possibly cardiac related. -For now, after extended discussion with the patient and his , I believe it is safe for the patient to be discharged home. Further evaluation as an outpatient to include an echocardiogram and pharmacologic nuclear stress test within the next week. -The patient will follow-up with me in the office within the next week as well. Consult Acknowledgment - Thank you for your consult request.
[2016-07-18 12:55] VITALS: BP 146/60
--- NOTE | 2016-07-18 13:06 | NUR ---
PER DR GONZALEZ, CONSULT WITH DR ESPARZA DETERMINED THAT PT IS SAFE TO DISCHARGE HOME. SPOKE WITH DR VILLAVICENCIO WHO HAS BEEN IN TOUCH WITH MOD TO COMMUNICATE WITH RESIDENT TO PROCESS PT'S DISCHARGE. FAMILY AND PT AWARE
--- NOTE | 2016-07-18 13:18 | NUR ---
PER RESIDENT, FITNESS AND WELLNESS COORDINATOR DR QUACH IS CURRENTLY WORKING ON DISCHARGE
--- NOTE | 2016-07-18 13:39 | Patient Discharge Instructions ---
Discharge Instructions General Discharge Information Special Instructions: Please follow-up with your primary care physician within 1 week after discharge Please follow-up with Dr. Hawk civil structural engineer within 1 week after discharge Acute Coronary Syndrome Inclusion Criteria At DC or during hospital stay patient has or had the following: ACS DIAGNOSIS No Discharge Core Measures Meds if any: Prescribed or Continued at Discharge Meds if any: NOT Prescribed or Continued at Discharge Congestive Heart Failure Inclusion Criteria At DC or during hospital stay patient has or had the following: CHF DIAGNOSIS No Discharge Core Measures Meds if any: Prescribed or Continued at Discharge Meds if any: NOT Prescribed or Continued at Discharge Cerebrovascular accident Inclusion Criteria At DC or during hospital stay patient has or had the following: CVA/TIA Diagnosis No Discharge Core Measures Meds if any: Prescribed or Continued at Discharge Meds if any: NOT Prescribed or Continued at Discharge Venous thromboembolism Inclusion Criteria VTE Diagnosis No VTE Type NONE VTE Confirmed by (Test) NONE Discharge Core Measures - Per Current guidelines, there needs to be overlap - treatment for the first 5 days of Warfarin therapy. - If discharged on Warfarin prior to 5 days of - overlap therapy, the patient will need to be - assessed for post discharge needs including - *Post discharge parental anticoagulation - *Warfarin and/or parental anticoagulation education - *Follow up date to check INR post discharge At least 5 days overlap therapy as Inpatient Yes Meds if any: Prescribed or Continued at Discharge Note: Overlap Therapy is Warfarin and Anticoagulant Meds if any: NOT Prescribed or Continued at Discharge
--- NOTE | 2016-07-18 13:59 | Discharge Summary ---
Hospital Course Allergies: Coded Allergies: Penicillins (Intermediate, HIVES 09/05/15) Discharge Instructions Medications at Discharge Discharge Medications: Continue taking these medications: Metoprolol Succinate (Metoprolol Succinate) 50 MG TAB.ER.24H 1 Tablet ORAL DAILY Qty = 30 Comments: NOT GIVEN DILTIAZEM HCL (Diltiazem 24HR Cd) 360 MG CAP.ER.24H 1 Capsule ORAL DAILY Qty = 30 Comments: NOT GIVEN Lisinopril/Hydrochlorothiazide (Lisinopril-Hctz 10-12.5 MG Tab) 10 MG-12.5 MG TABLET 1 Tablet ORAL DAILY Comments: Last Taken:07/18/16 Time:10AM Triamcinolone Acetonide (Triamcinolone Acetonide) 0.025 % CREAM..G. 1 Application On the skin TWICE DAILY Qty = 30 Instructions: apply to affected area(s) Comments: PER PT Naproxen Sodium (Aleve) 220 MG CAPSULE 2 Capsule ORAL DAILY Comments: NOT GIVEN GAVE 440MG
[2016-07-18 14:19] VITALS: BP 168/95
--- NOTE | 2016-07-18 17:38 | PN- Att Addend ---
Attending Addendum Attending Brief Note 66-year-old white male overweight with history of hypertension came in last evening with chest pressure and tingling in the arm. Was kept on observation. This morning he did not have any chest pain sister with patient at the bedside. Has had 3 sets of negative troponins and no acute EKG changes the patient was seen by Dr. Hawk who evaluated the patient patient was stable enough to be discharged have his echocardiogram and stress test as an outpatient to monitor his blood pressure and monitor for GI symptoms Laboratory Tests 07/18/16 0958: Troponin I < 0.01 07/18/16 0550: Anion Gap 12, Estimated GFR > 60, BUN/Creatinine Ratio 22.0, Phosphorus 4.6 H, Magnesium 2.0, Triglycerides 143, Cholesterol 205 H, LDL Cholesterol, Calc 134 H, HDL Cholesterol 43, Cholesterol/HDL Ratio 5 H, CBC w Diff NO MAN DIFF REQ, RBC 4.80, MCV 84.8, MCH 28.8, RDW 14.8 H, MPV 7.5, Gran % 57.5, Lymphocytes % 28.5, Monocytes % 10.0 H, Eosinophils % 3.0, Basophils % 1.0, Absolute Granulocytes 4.8, Absolute Lymphocytes 2.4, Absolute Monocytes 0.8 H, Absolute Eosinophils 0.3, Absolute Basophils 0.1, PUBS MCHC 33.9 07/18/16 0305: Troponin I < 0.01 07/17/161: Hemoglobin A1c Pending 07/17/162110: Anion Gap 14, Estimated GFR > 60, BUN/Creatinine Ratio 19.2, Glucose 103 H, Calcium 9.7, Magnesium 2.0, Total Bilirubin 0.5, AST 26, ALT 28, Alkaline Phosphatase 81, Troponin I < 0.01, Total Protein 7.9, Albumin 4.3, Globulin 3.6, Albumin/Globulin Ratio 1.2, TSH 2.930, Thyroxine (T4) 6.2, CBC w Diff NO MAN DIFF REQ, RBC 5.16, MCV 85.5, MCH 28.5, RDW 14.6 H, MPV 7.6, Gran % 62.6, Lymphocytes % 25.9, Monocytes % 8.5, Eosinophils % 2.1, Basophils % 0.9, Absolute Granulocytes 6.5, Absolute Lymphocytes 2.7, Absolute Monocytes 0.9 H, Absolute Eosinophils 0.2, Absolute Basophils 0.1, PUBS MCHC 33.3 Vital Signs Date Time Temp Pulse Resp B/P Pulse O2 O2 Flow FiO2 Ox Delivery Rate 07/18 1419 97.9 84 16 168/95 94 Room Air 07/18 1255 98.7 62 16 146/60 96 Room Air 07/18 0940 85 150/86 07/18 0722 98.0 81 147/92 94 07/18 0606 98.0 54 20 147/92 98 Room Air 07/18 0152 67 18 152/82 95 Room Air 07/17 2317 67 18 160/88 97 Room Air 07/17 2132 66 190/102 98 Room Air 07/17 2100 99.5 70 18 184/114 97 Room Air Intake & Output 07/18 1600 07/18 0800 07/18 0000 Intake Total 40 120 0 Output Total Balance 40 120 0 Intake, Oral 40 120 0 Patient 236 lb Weight
== END 2016-07-18 14:28 ==
LOC: ERH 20:31 → ERHI 07-18 00:56 → CANBEDREQ 07-18 14:16 → ERHI 07-18 14:28
PROVIDERS: Emergency Medicine; Internal Medicine; ADMIT Internal Medicine
DX: R07.9 Chest pain, unspecified (principal); I10 Essential (primary) hypertension; R42 Dizziness and giddiness; F41.9 Anxiety disorder, unspecified
CPT/HCPCS: ERO; 82436; 93005; 93010; G0378; J1650; J3490

== ENCOUNTER 2016-07-25 01:07 | Emergency (ER) | payer OTHER ==
[~2016-07-25 01:07] MED LIST changes: +ALEVE220 M1 PO; +TRIAMCINOLONE A15 GM TOP
[2016-07-25 01:24] VITALS: BP 165/91
--- NOTE | 2016-07-25 01:57 | ED GENERAL ADULT ---
History of Present Illness General Chief Complaint: General Adult Stated Complaint: "IM HAVING BAD ANXIETY" Source: patient, old records Exam Limitations: no limitations Vital Signs & Intake/Output Vital Signs & Intake/Output Vital Signs Date Time Temp Pulse Resp B/P Pulse O2 O2 Flow FiO2 Ox Delivery Rate 07/25 0207 98 Room Air 07/25 0124 98.5 67 24 165/91 99 Allergies Coded Allergies: Penicillins (Intermediate, HIVES 09/05/15) Reconcile Medications DILTIAZEM HCL (Diltiazem 24HR Cd) 360 MG CAP.ER.24H 1 CAP PO DAILY HEART ( Reported) Lisinopril/Hydrochlorothiazide (Lisinopril-Hctz 10-12.5 MG Tab) 10 MG-12.5 MG TABLET 1 TAB PO DAILY HEART/BP (Reported) Lorazepam (Ativan) 0.5 MG TABLET 1 TAB PO BIDP PRN ANXIETY Metoprolol Succinate 50 MG TAB.ER.24H 1 TAB PO DAILY HEART (Reported) Naproxen Sodium (Aleve) 220 MG CAPSULE 2 CAP PO DAILY PAIN/INFLAMMATION ( Reported) Triamcinolone Acetonide 0.025 % CREAM..G. 1 MICHAEL TOP BID SCALP (Reported) apply to affected area(s) Triage Note: PER PT SEEN SATURDAY NIGHT FOR ANXIETY MY SISTER IS WITH ME BUT I AM STILL SO ANXIOUS FEEL MY HEART POUNDING ",SATURDAY YOU WERE DIVERTING ME". I NEED TO GET CHECKED OUT Triage Nurses Notes Reviewed? yes HPI: Patient presents with increasing anxiety. Patient was seen here last week for chest pain and after a workup he was told that it was anxiety. Patient has appointment with his compliance testing analyst as well as his primary care physician for later this week. Patient states that tonight he was unable to sleep because of anxiety. Patient denies any more chest pain. Denies shortness of breath. There is no lightheadedness. There is no nausea or vomiting. There are no fevers or chills. There are no homicidal or suicidal ideations. Past History Travel History Traveled to [place] past 21 day No Medical History Any Pertinent Medical History? 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 No Review of Systems Review of Systems Constitutional: Reports: no symptoms. EENTM: Reports: no symptoms. Respiratory: Reports: no symptoms. Cardiovascular: Reports: no symptoms. GI: Reports: no symptoms. Genitourinary: Reports: no symptoms. Musculoskeletal: Reports: no symptoms. Skin: Reports: no symptoms. Neurological/Psychological: Reports: see HPI, anxiety. Hematologic/Endocrine: Reports: no symptoms. Immunologic/Allergic: Reports: no symptoms. All Other Systems: Reviewed and Negative Physical Exam Physical Exam General Appearance: well developed/nourished, alert, awake, anxious Head: atraumatic, normal appearance Eyes: Bilateral: PERRL, EOMI. Ears, Nose, Throat: normal pharynx, normal ENT inspection, hearing grossly normal Neck: normal inspection, supple, full range of motion Respiratory: normal breath sounds, chest non-tender, no respiratory distress, lungs clear Cardiovascular: regular rate/rhythm, normal peripheral pulses, systolic murmur Gastrointestinal: normal bowel sounds, soft, non-tender Back: normal inspection, normal range of motion Extremities: normal inspection, normal capillary refill, normal range of motion, no edema Neurologic/Psych: no motor/sensory deficits, awake, alert, oriented x 3, normal gait, normal mood/affect Skin: intact, normal color, warm/dry Core Measures ACS in differential dx? Yes ASA ordered for poss ACS? No-ACS ruled out CVA/TIA Diagnosis: No Severe Sepsis Present: No Septic Shock Present: No Progress Differential Diagnoses I considered the following diagnoses in my evaluation of the patient: [AMI, ELECTROLYTE ABNORMALITY, ANXIETY] Plan of Care: Orders Procedure Date/time Status EKG 07/25 155 Active Laboratory Tests 07/25/16 0156: Troponin I Cancelled, CBC w Diff Cancelled, WBC Cancelled, RBC Cancelled, Hgb Cancelled, Hct Cancelled, MCV Cancelled, MCH Cancelled, RDW Cancelled, Plt Count Cancelled, MPV Cancelled, PUBS MCHC Cancelled Initial ED EKG: none Comments: Patient is refusing the EKG and blood work. Patient states she just had them last week and they were normal. Patient verbally understands the risks of not having a work up done. Departure Departure Disposition: HOME OR SELF CARE Condition: Stable Clinical Impression Primary Impression: Anxiety Referrals: KIRILL ESPARZA MD (PCP/Family) Additional Instructions: RETURN IF SYMPTOMS WORSEN OR FOR ANY CONCERNS Departure Forms: Customer Survey General Discharge Information Prescriptions: Current Visit Scripts Lorazepam (Ativan) 1 TAB PO BIDP PRN ANXIETY #20 TAB Critical Care Note Critical Care Note Critical Care Time: non-applicable
[2016-07-25] MEDS ORDERED: ATIVAN0.5 M1 PO (02:01)
== END 2016-07-25 02:11 ==
LOC: ERH 01:07
DX: F41.9 Anxiety disorder, unspecified (principal)

== ENCOUNTER 2016-10-12 21:16 | Inpatient (IN) | payer OTHER ==
[~2016-10-12] VITALS: Ht 175.3 cm; Wt 103.9 kg
[~2016-10-12 21:16] MED LIST changes: +ATIVAN0.5 M1 PO
--- NOTE | 2016-10-12 21:22 | NUR ---
PER PT AT [facility] GOT REAL ANXIOUS THEN FELT SOB AND WAS BREATHING ALOT AND BECAME DIZZY. FEELS SOB WITH AMBULATION AND DIZZYNESS IS BETTER AFTER TAKING BUSPAR 90 MINUTES AGO.
[2016-10-12] MEDS ORDERED: MECLIZINE HCL25 MG PO (21:23)
[2016-10-12] MEDS ORDERED: DILTIAZEM 24HR360 MG PO (21:23)
[2016-10-12] MEDS ORDERED: METOPROLOL SUCC50 M2 PO (21:24)
[2016-10-12] MEDS ORDERED: BUSPIRONE HCL15 M1 PO (21:24)
--- NOTE | 2016-10-12 21:49 | ED GENERAL ADULT ---
History of Present Illness General Chief Complaint: Dizziness Stated Complaint: PT IS DIZZY AND SOB Source: patient, family, old records Exam Limitations: no limitations Vital Signs & Intake/Output Vital Signs & Intake/Output Vital Signs Date Time Temp Pulse Resp B/P Pulse O2 O2 Flow FiO2 Ox Delivery Rate 10/13 0225 104 160/80 10/13 0141 97.5 104 20 190/100 95 Room Air 10/13 0011 92 16 180/90 95 Room Air 10/12 2332 90 16 160/80 95 Room Air 10/12 2230 Room Air 10/12 2124 97.8 96 22 140/106 96 Room Air ED Intake and Output 10/13 0000 10/12 1200 Intake Total Output Total Balance Patient 229 lb Weight Allergies Coded Allergies: Penicillins (Intermediate, HIVES 09/05/15) Triage Note: PER PT AT [facility] GOT REAL ANXIOUS THEN FELT SOB AND WAS BREATHING ALOT AND BECAME DIZZY. FEELS SOB WITH AMBULATION AND DIZZYNESS IS BETTER AFTER TAKING BUSPAR 90 MINUTES AGO. Triage Nurses Notes Reviewed? yes HPI: Patient is a 66 year old male presents complaining of dyspnea and chest heaviness onset 2 hours ago while at [facility]. Chest pain is a heaviness sensation, midsternal, was 10 out of 10, currently 6 out of 10. Feels similar to previous anxiety attack episodes. Patient took a dose of his BuSpar with moderate improvement. Patient denies palpitations, lower extremity swelling, calf pain, fevers, chills. (MARGE YEH,THUAN) Reconcile Medications Buspirone HCl 15 MG TABLET 1 TAB PO AT BEDTIME PRN ANXIETY (Reported) Diltiazem HCl (Cardizem Cd) 360 MG CAP.ER.24H 1 CAP PO DAILY HEART HEALTH ( Reported) Lisinopril/Hydrochlorothiazide (Lisinopril-Hctz 10-12.5 MG Tab) 10 MG-12.5 MG TABLET 1 TAB PO DAILY HEART/BP (Reported) Meclizine HCl 25 MG TABLET 1 TAB PO TID DIZZYNESS (Reported) Metoprolol Succinate 50 MG TAB.ER.24H 1 TAB PO DAILY HTN (Reported) Triamcinolone Acetonide 0.025 % OINT...G. 1 MICHAEL TOP BID PRN RASH (Reported) apply to affected area(s) (HARVEY RAMSEY,KAREN Childs) Past History Travel History Traveled to [place] past 21 day No Medical History Any Pertinent Medical History? 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 No (THUAN FRANCOIS) Review of Systems Review of Systems Constitutional: Denies: chills, fever, malaise, weakness. EENTM: Reports: no symptoms. Respiratory: Reports: short of breath. Denies: cough. Cardiovascular: Reports: see HPI. GI: Denies: abdominal pain, nausea, vomiting. Genitourinary: Reports: no symptoms. Musculoskeletal: Reports: no symptoms. Skin: Reports: no symptoms. Neurological/Psychological: Reports: anxiety. Hematologic/Endocrine: Reports: no symptoms. Immunologic/Allergic: Reports: no symptoms. (THUAN FRANCOIS) Physical Exam Physical Exam General Appearance: well developed/nourished, alert, awake, anxious Head: atraumatic, normal appearance Eyes: Bilateral: normal appearance, PERRL, EOMI. Ears, Nose, Throat: normal pharynx, normal ENT inspection, hearing grossly normal Neck: normal inspection, supple, full range of motion Respiratory: normal breath sounds, chest non-tender, no respiratory distress, lungs clear Cardiovascular: regular rate/rhythm (occasional premature beat) Gastrointestinal: soft, non-tender Back: normal inspection, normal range of motion Extremities: normal inspection, normal capillary refill, normal range of motion, no edema Neurologic/Psych: no motor/sensory deficits, awake, alert, oriented x 3 Skin: intact, normal color, warm/dry Lymphatic: no anterior cervical lindsay Core Measures ACS in differential dx? Yes ASA ordered for poss ACS? Yes-ordered CVA/TIA Diagnosis: No Severe Sepsis Present: No Septic Shock Present: No (THUAN FRANCOIS) Progress Differential Diagnoses I considered the following diagnoses in my evaluation of the patient: Acute coronary syndrome, arrhythmia, anxiety, pulmonary embolism, aortic dissection Plan of Care: Orders Procedure Date/time Status EKG 10/14 1200 Active Heart Healthy Diet 10/13 B Active TROPONIN LEVEL 10/13 1200 Active TROPONIN LEVEL 10/13 0600 Active LIPID PANEL 10/13 06 Active EKG 10/13 0600 Active Vital Signs 10/14 127 Active Teach/Educate 10/14 127 Active Pain Treatment and Response 10/14 127 Active Nutritional Intake, Monitor 10/14 127 Active Isolation 10/14 127 Active Intake & Output 10/14 127 Active Patient Care Conference 10/14 127 Active Activity/Ambulation 10/13 012 Active Intake & Output 10/13 0121 Active Pathway - chart 10/13 0044 Active EKG 10/13 0039 Active Pathway - chart 10/13 0028 Active Code Status 10/13 0028 Active House Staff 10/13 UNK Active VTE Mechanical Prophylaxis 10/13 UNK Active Vital Signs 10/13 UNK Complete ECHOCARDIOGRAM 10/13 UNK Active Patient Data 10/12 2335 Active Saline Lock 10/12 233 Active Misc Message 10/12 2331 Active ED Holding Orders 10/12 2331 Active Vital Signs 10/12 2331 Active Code Status 10/12 2331 Complete Admit to inpatient 10/12 233 Active Add-on Test (ER Only) 10/12 2314 Active THYROID STIMULATING HORMONE 10/13 2207 Complete MAGNESIUM 10/13 2207 Complete Telemetry/Certified Medical Records Coder 10/12 2202 Active TROPONIN LEVEL 10/12 2202 Complete COMPREHENSIVE METABOLIC PANEL 10/12 2202 Complete CBC WITHOUT DIFFERENTIAL 10/12 2202 Complete EKG 10/12 2125 Active Current Medications Sig/Maggie Start time Last Medication Dose Stop Time Status Admin Aspirin Buffered 81 MG DAILY 10/13 999 AC (Ecotrin) Diltiazem HCl 360 MG DAILY 10/13 1000 AC (Cardizem CD) Hydrochlorothiazide 12.5 MG DAILY 10/13 1000 AC (Hydrodiuril) Lisinopril 10 MG DAILY 10/13 1000 AC (Prinivil) Metoprolol Succinate 50 MG DAILY 10/13 999 AC (Toprol Xl) Buspirone HCl 15 MG AT BEDTIME NEED.. 10/13 0045 AC (Buspar) Laboratory Tests 10/12/16 2208: Anion Gap 13, Estimated GFR > 60, BUN/Creatinine Ratio 21.0, Glucose 114 H, Calcium 9.3, Magnesium 1.9, Total Bilirubin 0.5, AST 21, ALT 39, Alkaline Phosphatase 98, Troponin I < 0.01, Total Protein 7.7, Albumin 4.0, Globulin 3.7, Albumin/Globulin Ratio 1.1, TSH 2.500, CBC w Diff NO MAN DIFF REQ, RBC 5.32, MCV 83.4, MCH 27.5, RDW 15.0 H, MPV 7.3 L, Gran % 68.6, Lymphocytes % 20.6, Monocytes % 9.1, Eosinophils % 1.4, Basophils % 0.3, Absolute Granulocytes 8.3 H, Absolute Lymphocytes 2.5, Absolute Monocytes 1.1 H, Absolute Eosinophils 0.2 , Absolute Basophils 0, PUBS MCHC 32.9 L 10/12/2016 11:26:50 PM: Patient had a run of ventricular tachycardia with 21 beats. Patient evaluated immediately, was asymptomatic during his episode. History evaluated multiple times. Multiple episodes of nonsustained ventricular tachycardia. Patient remained asymptomatic. Discussed with Dr. Vieyra. Dr. Vieyra discussed with Dr. Yan solis for Dr. Tobias for admission. Discussed with Dr. Chris solis for Dr. Hawk. (THUAN FRANCOIS) Initial ED EKG: sinus rhythm at 85 bpm normal axis, normal intervals, multiple PVCs, no acute ST/T-wave abnormalities, no acute changes from previous EKG Prior EKG: unchanged Rhythm Strip: normal sinus rhythm, PVC (THUAN FRANCOIS) Departure Departure Time of Disposition: 2329 Disposition: STILL A PATIENT Condition: Stable Referrals: KIRILL TOBIAS MD (PCP/Family) Departure Forms: Customer Survey General Discharge Information (THUAN FRANCOIS) Departure Clinical Impression Primary Impression: Ventricular tachycardia Secondary Impressions: Chest pain Admission Note Spoke With: DURAN BEE MD Documentation of Exam: Documentation of any treatments & extenuating circumstances including Concerns Regarding Discharge (functional status, medication knowledge or non-compliance, living conditions, etc.) that warrant an admission rather than observation: \ pt with 21 beat run of v-tach... pt to be admitted for medical management, monitoring, consider defibrilator. pt needs rule out and monitoring. PA/BACTERIOLOGIST FOOD Co-Sign Statement Statement: ED Attending supervision documentation- [x] I saw and evaluated the patient. I have also reviewed all the pertinent lab results and diagnostic results. I agree with the findings and the plan of care as documented in the PA's/BACTERIOLOGIST FOOD's documentation. [] I have reviewed the ED Record and agree with the PA's/BACTERIOLOGIST FOOD's documentation. [] Additions or exceptions (if any) to the PAs/BACTERIOLOGIST FOOD's note and plan are summarized below: [] (HARVEY RAMSEY,KAREN Cihlds) Critical Care Note Critical Care Note Critical Care Time: 30-74 min (HARVEY RAMSEY,KAREN Childs)
[2016-10-12 22:19] LABS: ABSOLUTE BASOPHIL COUNT 0 /CUMM (0.0-0.2); ABSOLUTE EOSINOPHIL COUNT 0.2 /CUMM (0.0-0.7); ABSOLUTE GRANULOCYTE CT 8.3 /CUMM (1.4-6.5); ABSOLUTE LYMPH COUNT 2.5 /CUMM (1.2-3.4); ABSOLUTE MONOCYTE COUNT 1.1 /CUMM (0.10-0.60); BASOPHIL % 0.3 % (0.0-2.0); EOSINOPHIL % 1.4 % (0-5); GRANULOCYTE % 68.6 % (42.2-75.2); HEMATOCRIT 44.3 % (42-52); MEAN CORPUSCULAR HGB 27.5 PG (27.0-31.0); MEAN CORPUSCULAR HGB CONC 32.9 G/DL (33.0-37.0); MEAN CORPUSCULAR VOLUME 83.4 FL (80.0-94.0); MEAN PLATELET VOLUME 7.3 FL (7.4-10.4); PLATELET COUNT 315 /CUMM (130-400); RED BLOOD CELL CT 5.32 /CUMM (4.70-6.10); WHITE BLOOD CELL COUNT 12.1 /CUMM (4.8-10.8)
--- NOTE | 2016-10-12 22:29 | NUR ---
PT TO ED WITH FAMILY MEMBERS FOR CHEST HEAVYNESS/ANXIETY THAT STARTED LICENSED ELECTRICIAN. PT REPORTS "THE PAIN GETS WORSE WHEN I GET OVER-EXCITED AND TRY WALKING AROUND, USUALLY IT'S BETTER WHEN I WALK AROUND." PT NOTED TO BE ANXIOUS. TOOK BUSPAR LICENSED ELECTRICIAN. AWAKE/ALERT WITH EASY WOB AT THIS TIME. DENIES DIZZYNESS WHILE LAYING IN STRETCHER AT THIS TIME. CXR AT BEDSIDE.
--- NOTE | 2016-10-12 23:06 | RADIOLOGY REPORT ---
EXAMINATION: XR PORTABLE CHEST CLINICAL INFORMATION: Chest pain and dyspnea. COMPARISON: Chest x-ray 07/17/2016. TECHNIQUE: Portable AP view of the chest was obtained. FINDINGS: The lungs are hypoinflated, without focal airspace consolidation. No pleural effusions or pneumothoraces are identified. Cardiomediastinal contours are within normal limits. Soft tissues are unremarkable. No acute osseous abnormality is identified. IMPRESSION: No acute pulmonary process.
--- NOTE | 2016-10-12 23:25 | NUR ---
PT NOTED TO HAVE 21 RUNS OF VTACH ON CM. RUBA BIRD AWARE. PT ASYMTOMPATIC, OFFERS NO COMPLAINTS, DENIES CP. PIV ESTABLISHED.
--- NOTE | 2016-10-12 23:49 | History & Physical ---
MADISON RAMSEY,[facility] 10/12/16 6689: General Information and HPI MD Statement: I have seen and personally examined RADHA RAMOS and documented this H&P. The patient is a 66 year old M who presented with a patient stated chief complaint of [chest tightness, difficulty breathing]. Source of Information: patient Exam Limitations: no limitations History of Present Illness: Patient is a 66 year old male, with PMH of HTN, anxiety, vertigo, recent admission in Jul 2016 with chest pain, who is brought in to the ED due to experiencing chest tightness and pressure in the evening when he was at the jehovah's witness, he decided to walk home and reports becoming winded on the way, called his niece when he reached home and his niece and sister brought him to the ED. Patient reports he took one Buspar, which helped with his chest tightness. Denies having chest pain, dizziness, palpitation, diaphoresis, SOB, headache, vision changes, LOC. Did not take any aspirin or NG, only took Buspar as he thought it is most likely due to anxiety. Patient has had frequent PVCs while in the ED, once 23 beats and several times 5 -10 beats. Has been asymptomatic during the episodes. He had another 21 beats after he was taken to the telemetry floor, again asymptomatic. He had chest pain in July and ACS was ruled out at that time, he followed up outpatient with Dr. Hawk and echocardiogram was normal, stress test was not done at that time as the patient refused. Allergies/Medications Allergies: Coded Allergies: Penicillins (Intermediate, HIVES 09/05/15) Home Med list Buspirone HCl 15 MG TABLET 1 TAB PO AT BEDTIME PRN ANXIETY (Reported) Diltiazem HCl (Cardizem Cd) 360 MG CAP.ER.24H 1 CAP PO DAILY HEART HEALTH ( Reported) Lisinopril/Hydrochlorothiazide (Lisinopril-Hctz 10-12.5 MG Tab) 10 MG-12.5 MG TABLET 1 TAB PO DAILY HEART/BP (Reported) Meclizine HCl 25 MG TABLET 1 TAB PO TID DIZZYNESS (Reported) Metoprolol Succinate 50 MG TAB.ER.24H 1 TAB PO DAILY HTN (Reported) Triamcinolone Acetonide 0.025 % OINT...G. 1 MICHAEL TOP BID PRN RASH (Reported) apply to affected area(s) Past History Travel History Traveled to [place] past 21 day No Medical History Neurological: NONE EENT: NONE Cardiovascular: hypertension Respiratory: NONE Gastrointestinal: R INGUINAL HERNIA Hepatic: NONE Renal: NONE Musculoskeletal: FRACTURE R WRIST Psychiatric: anxiety Endocrine: NONE Blood Disorders: NONE Cancer(s): NONE BUSINESS ANALYTICS ANALYST/Reproductive: NONE History of MRSA: No History of VRE: No History of CDIFF: No Surgical History Surgical History: BUNION SURGERY, right wrist fracture, right inguinal hernia repain in April 2016 Past Family/Social History Family History Relations & Conditions if any MOTHER FH: myocardial infarction FHx: COPD (chronic obstructive pulmonary disease) FATHER FH: myocardial infarction BROTHER FH: myocardial infarction FHx: COPD (chronic obstructive pulmonary disease) Relation not specified for: FH: diabetes mellitus Psychosocial History Who Do You Live With? self Services at Home: None Primary Language: Turkmen Smoking Status: Never Smoked ETOH Use: occasional use Illicit Drug Use: denies illicit drug use Functional Ability ADLs Independent: dressing, eating, toileting, bathing. Ambulation: independent Employment History Employment Retired Review of Systems Review of Systems Constitutional: Denies: chills, diaphoresis, fever, malaise, weakness. EENTM: Reports: no symptoms. Cardiovascular: Denies: chest pain (chest tightness, currently (-)), edema, palpitations, peripheral edema, syncope. Respiratory: Denies: cough, short of breath, sputum production. GI: Reports: no symptoms. Genitourinary: Reports: no symptoms. Musculoskeletal: Reports: no symptoms. Skin: Reports: no symptoms. Neurological/Psychological: Reports: no symptoms. Hematologic/Endocrine: Reports: no symptoms. Immunologic/Allergic: Reports: no symptoms. Exam & Diagnostic Data Last 24 Hrs of Vital Signs/I&O Vital Signs Date Time Temp Pulse Resp B/P Pulse O2 O2 Flow FiO2 Ox Delivery Rate 10/13 0011 92 16 180/90 95 Room Air 10/12 2332 90 16 160/80 95 Room Air 10/12 2230 Room Air 10/12 2124 97.8 96 22 140/106 96 Room Air Intake & Output 10/13 0800 10/13 0000 10/12 1600 Intake Total Output Total Balance Patient 103.873 kg Weight Physical Exam General Appearance Alert, Oriented X3, Cooperative, No Acute Distress, appears anxious and fidgety, touches the tip of the tongue with upper incisor repetitively and states that he can not stop doing it due to nxiety, it has caused an ulcer at the tip of the tongue. Skin several excoriated skin lesions on the scalp, itchy, worsening with anxiety HEENT Atraumatic, EOMI, Mucous Membr. moist/pink, pupils round and reactive to light. there is tongue ulcer due to a blister chronically nonhealing and worsening as the patient reports manipulating with his upper central incisor Neck Supple, No JVD Cardiovascular Normal S1, Normal S2, No Murmurs, irregular Lungs Clear to Auscultation, Normal Air Movement Abdomen Soft, No Tenderness, obese Neurological Normal Speech, Normal Tone Extremities No Edema, Normal Pulses, No Tenderness/Swelling Vascular Pulses Symmetrical Last 24 Hrs of Labs/Julio: Laboratory Tests 10/12/16 2208: Anion Gap 13, Estimated GFR > 60, BUN/Creatinine Ratio 21.0, Glucose 114 H, Calcium 9.3, Magnesium 1.9, Total Bilirubin 0.5, AST 21, ALT 39, Alkaline Phosphatase 98, Troponin I < 0.01, Total Protein 7.7, Albumin 4.0, Globulin 3.7, Albumin/Globulin Ratio 1.1, TSH 2.500, CBC w Diff NO MAN DIFF REQ, RBC 5.32, MCV 83.4, MCH 27.5, RDW 15.0 H, MPV 7.3 L, Gran % 68.6, Lymphocytes % 20.6, Monocytes % 9.1, Eosinophils % 1.4, Basophils % 0.3, Absolute Granulocytes 8.3 H, Absolute Lymphocytes 2.5, Absolute Monocytes 1.1 H, Absolute Eosinophils 0.2 , Absolute Basophils 0, PUBS MCHC 32.9 L Assessment/Plan Assessment: Patient is a 66 year old male, with PMH of HTN, anxiety, vertigo, recent admission in Jul 2016 with chest pain, who is brought to the ED due to experiencing chest tightness and pressure accompanied by difficulty breathing. Symptoms improved with Buspar. Patient has had multiple episodes of Vtach in the ED with no symptoms. He is admitted to telemetry floor for monitoring and to rule out ACS. Problem list and plan: Acute onset chest tightness Patient has a recent history of chest pain in July 2016 for which ACS was ruled out. He also has history anxiety and PVCs. He has had multiple PVCs, one time 23 beats around 11:13 pm. * cardiac monitoring * vital signs every shift * repeat troponin and EKG * consult cardiology in AM * aspirin 81 mg daily * continue metoprolol 50 mg daily, lisinopril 10 mg daily, cardizem 360 mg daily , HCTZ * Magnesium 1 gram IV History of HTN * continue HCTZ 12.5 mg daily * continue lisinopril 10 mg daily * continue diltiazem and metoprolol History of anxiety * continue buspirone 15 mg at bedtime PRN Pain mild pathway Diet heart healthy DVT px with SC heparin FULL CODE As Ranked By This Provider Problem List: 1. HTN (hypertension) 2. Chest pain 3. Anxiety 4. Ventricular tachycardia Core Measures/Miscellaneous Acute Coronary Syndrome ACS Diagnosis: No Cerebrovascular Accident CVA/TIA Diagnosis: No Congestive Heart Failure CHF Diagnosis: No Venous Thromboembolism VTE Risk Factors: Acute medical illness, Age > 40 No [facility] VTE prophylaxis d/t: No contraindications No VTE Pharm Prophylaxis d/t: No contraindications VTE Diagnosis: No VTE Type: NONE VTE Confirmed by (Test): NONE Severe Sepsis Severe Sepsis Present: No Septic Shock Septic Shock Present: No Miscellaneous Documentation Attending Case Discussed With: DURAN BEE MD Primary Care Physician: KIRILL ESPARZA MD Patient sees these Specialists Dr. Carine Foster Level of Patient Care: Telemetry DANIELLE HIGUERA MD 10/13/16 0112: Resident Review Statement Resident Statement: examined this patient, discussed with events intern, agreed with events intern, discussed with family, reviewed EMR data (avail), reviewed images, amended to note Other Findings: This is 66-year-old obese male with past medical history of hypertension, vertigo, right knee osteoarthritis, frequent asymptomatic PVCs presented from [employer] after he had an acute episode of dyspnea associated with chest tightness and what he feels like insight he attack he had in the past. Patient was admitted to [facility] in July 2016 with similar complaint and that time his serial troponin remain negative and patient was discharged and had outpatient cardiac workup by Dr. Hawk including echocardiogram which patient claims was normal. Patient said he was fine up until this evening when in jehovah's witness all of a sudden he started having dyspnea associated with chest pressure which he described as someone punched him in the chest. Patient quickly went to home and took his anxiety medication to as he had similar episode in the past which was related with anxiety attack. He immediately called his niece who brought him to ER for further evaluation. Patient came to ER within 30 minutes of symptom onset and reports his symptoms started subsiding on arrival and completely went away after 2 hours of symptom onset. Patient denies any symptom correlation with physical exertion. He also denies any orthopnea, dizziness, lightheadedness, diaphoresis, abdominal pain, headache, nausea, vomiting or urinary symptoms. On evaluation patient was completely asymptomatic and denied any chest pain or difficulty in breathing. Patient noted very anxious. Patient had 21 beats of nonsustained VT followed by 9 beats of nonsustained VT in ER and during these episodes patient remained completely symptom free. On arrival his vitals were T 97.8, HR 96, RR 22, BP 140/106, O2 sats 96% on room air. On physical exam patient noted alert oriented 3, very anxious, HEENT PERRLA EOMI, neck supple without JVD, heart S1-S2 normal without murmur, lungs clear on auscultation, abdomen soft nontender nondistended with preserved bowel sounds, no gross focal neuro deficit, no peripheral edema. Labs were significant for mild leukocytosis of 12,100, BUN 21, creatinine 1, K4.6 magnesium 1.9, troponin negative, TSH 2.5. Chest x-ray was clear EKG revealed normal sinus rhythm at rate of 85 with multiple PVCs, left axis deviation, lateral bleed ST depression in lead V5 and V6. On telemetry monitoring patient had 21 beats of nonsustained VT and also 9 beats of nonsustained VT with multiple PVCs in ER Assessment and plan: 1. Acute chest pain Admit to telemetry Rule out underlying coronary event with serial troponin and EKG Start aspirin Continue metoprolol, Cardizem and lisinopril Echocardiogram in a.m. Cardiology consult in a.m. 2. PVCs - Continue telemetry monitoring - Keep magnesium more than 2 and potassium more than 4 - Given 1 g IV magnesium sulfate in ER - Repeat electrolytes in a.m. 3. Hypertension - Continue metoprolol, Cardizem, lisinopril and HCTZ 4. Anxiety - Continue BuSpar as needed 5. DVT prophylaxis Subcutaneous Lovenox 6. Full code DURAN BEE MD 10/13/16 1249: Attending Review Statement Attending Statement Attending Statement: examined this patient, discuss w/resident/PA/BILLET SAWYER, discussed with family, reviewed EMR data (avail)
--- NOTE | 2016-10-13 | NUR ---
PT CONT TO DENY CP. NO ADDITIONAL RUNS OF VTACH NOTED ON CM. WILL CONT TO MONITOR.
--- NOTE | 2016-10-13 00:06 | NUR ---
BED ASSIGNMENT 209-1
--- NOTE | 2016-10-13 00:08 | NUR ---
HOUSE STAFF AT BEDSIDE FOR EVAL AND PT NOTED TO HAVE 9 RUNS OF VTACH ON CM. PT REMAINS ASYMPTOMATIC, DENIES CP/SOB. AWAKE/ALERT WITH EASY WOB.
--- NOTE | 2016-10-13 00:10 | NUR ---
[facility] ASSIGNMENT 182-1
--- NOTE | 2016-10-13 00:17 | NUR ---
PT NOTED TO HAVE 6 RUNS OF VTACH ON CM AT THIS TIME. CONT TO DENY CP/SOB.
[2016-10-13] MEDS ORDERED: TRIAMCINOLONE A80 GM TOP (00:35)
--- NOTE | 2016-10-13 00:40 | NUR ---
REPORT TO MARY ANN CRAIG ON .
[2016-10-13] MEDS ORDERED: CARDIZEM CD360 M1 PO (01:21)
[2016-10-13 01:41] VITALS: BP 190/100
[2016-10-13 02:25] VITALS: BP 160/80
[2016-10-13 07:43] VITALS: BP 170/62
--- NOTE | 2016-10-13 09:05 | PN- Housestaff ---
Subjective Follow-up For: chest discomfort Anxiety Tele-Events Since Last Visit: Sinus tachy, sinus rhythm - 94-103bpm 7 runs V.Tach (4-36bpm) - multiple ectopies. Subjective: I saw and examined the patient today morning He is doing much better after giving xanax 0.5mg for anxiety in the morning. He denies any further testing, reports he is feeling much better and want to go home. We (me and ), informed the patient about asymmetric leg swelling and need for an ultrasound of leg to rule out clot, he refused it. Review of Systems Constitutional: Reports: see HPI. Comments: ROS negative except the above. Objective Last 24 Hrs of Vital Signs/I&O Vital Signs Date Time Temp Pulse Resp B/P Pulse O2 O2 Flow FiO2 Ox Delivery Rate 10/13 0848 115 170/62 10/13 0836 115 170/62 10/13 0743 98.7 115 170/62 94 10/13 0225 104 160/80 10/13 0141 97.5 104 20 190/100 95 Room Air 10/13 0011 92 16 180/90 95 Room Air 10/12 2332 90 16 160/80 95 Room Air 10/12 2230 Room Air 10/12 2124 97.8 96 22 140/106 96 Room Air Intake & Output 10/13 1600 10/13 0800 10/13 0000 Intake Total 630 Output Total Balance 630 Intake, IV 150 Intake, Oral 480 Patient 103.873 kg 103.873 kg Weight Physical Exam General Appearance: Alert, Oriented X3, Cooperative, No Acute Distress Skin: No Rashes, No Breakdown HEENT: Atraumatic, PERRLA Neck: Supple Cardiovascular: Regular Rate, Normal S1, Normal S2 Lungs: Clear to Auscultation Abdomen: Normal Bowel Sounds, Soft, No Tenderness Neurological: Normal Gait, Normal Speech, Strength at 5/5 X4 Ext, Normal Tone, Sensation Intact Extremities: No Clubbing, No Cyanosis, asymmetric swelling on right side Vascular: Normal Pulses, Pulses Symmetrical Current Medications: Current Medications Sig/Maggie Start time Last Medication Dose Route Stop Time Status Admin Acetaminophen 650 MG Q6P PRN 10/13 0045 AC 10/13 PO 0224 Aspirin 0 .STK-MED ONE 10/121 DC PO Aspirin 325 MG ONCE ONE 10/12 2214 DC 10/12 PO 04/07 2216 2219 Aspirin Buffered 81 MG DAILY 10/13 1000 AC 10/13 PO 0836 Buspirone HCl 15 MG AT BEDTIME NEED.. 10/13 44 AC PO Diltiazem HCl 360 MG DAILY 10/13 1000 AC 10/13 PO 0835 Heparin Sodium 0 .STK-MED ONE 10/13 44 DC (Porcine) .ROUTE Heparin Sodium 5,000 UNIT Q8 10/13 0027 AC 10/13 (Porcine) SC 0659 Hydrochlorothiazide 12.5 MG DAILY 10/13 1000 AC 10/13 PO 0836 Lisinopril 10 MG DAILY 10/13 1000 AC 10/13 PO 0836 Magnesium Sulfate 0 .STK-MED ONE 10/13 44 DC .ROUTE Magnesium Sulfate 1 GM ONCE ONE 10/13 0030 DC 10/13 Dextrose/Water 100 ML IV 10/137 Melatonin 3 MG ONCE ONE 10/13 414 DC 10/13 PO 10/13 0416 0415 Metoprolol Succinate 50 MG DAILY 10/13 999 AC 10/13 PO 0848 Last 24 Hrs of Lab/Julio Results Last 24 Hrs of Labs/Mics: Laboratory Tests 10/13/16 0600: Troponin I < 0.01, Triglycerides 133, Cholesterol 199, LDL Cholesterol, Calc 137 H, HDL Cholesterol 36 L, Cholesterol/HDL Ratio 5 H 10/12/168: Anion Gap 13, Estimated GFR > 60, BUN/Creatinine Ratio 21.0, Glucose 114 H, Calcium 9.3, Magnesium 1.9, Total Bilirubin 0.5, AST 21, ALT 39, Alkaline Phosphatase 98, Troponin I < 0.01, Total Protein 7.7, Albumin 4.0, Globulin 3.7, Albumin/Globulin Ratio 1.1, TSH 2.500, CBC w Diff NO MAN DIFF REQ, RBC 5.32, MCV 83.4, MCH 27.5, RDW 15.0 H, MPV 7.3 L, Gran % 68.6, Lymphocytes % 20.6, Monocytes % 9.1, Eosinophils % 1.4, Basophils % 0.3, Absolute Granulocytes 8.3 H, Absolute Lymphocytes 2.5, Absolute Monocytes 1.1 H, Absolute Eosinophils 0.2 , Absolute Basophils 0, PUBS MCHC 32.9 L Assessment/Plan Assessment: Patient is a 66 year old male, with PMH of HTN, anxiety, vertigo, recent admission in Jul 2016 with chest pain, who is brought to the ED due to experiencing chest tightness and pressure accompanied by difficulty breathing. Symptoms improved with Buspar. Patient has had multiple episodes of Vtach in the ED with no symptoms. He is admitted to telemetry floor for monitoring and to rule out ACS. Problem list and plan: Acute onset chest tightness Patient has a recent history of chest pain in July 2016 for which ACS was ruled out. He also has history anxiety and PVCs. He has had multiple PVCs, one time 23 beats around 11:13 pm. * repeat troponin and EKG are negative * tachycardic and hypertensive, several runs of V.tach through out the night. ( 7runs) * aspirin 81 mg daily * Increased metoprolol to 75mg daily, lisinopril 10 mg daily, cardizem 360 mg daily, HCTZ * on board Asymmetric swelling of legs * R>L - unilateral doppler requested * most probably done tomorrow. Hyperlipidemia * LDL 137, HDL 36, cholesterol 199 * Started on low dose statin - Atorvastatin 20mg daily History of anxiety * continue buspirone 15 mg at bedtime PRN Pain mild pathway Diet heart healthy DVT px with SC heparin FULL CODE Problem List: 1. Ventricular tachycardia 2. Anxiety 3. Chest pain 4. Hypertension Pain Ratin Pain Location: chest pain Pain Goal: Pain 4 or less Pain Plan: tylenol prn Tomorrow's Labs & Rationales: cbc to monitor H&H bep and mag in VT patient
--- NOTE | 2016-10-13 12:42 | Admission Certification ---
Admission Certification Certification Statement - As attending physician, I certify that at the time of - admission, based on clinical presentation, severity of - symptoms, need for further diagnostic testing and - therapeutic interventions, and risk of adverse outcomes - without in-hospital treatment, in my clinical assessment, - this patient requires an acute hospital stay for a minimum - of two nights or longer. I have also considered psychsocial - factors such as support system, advanced age, financial - issues, cognitive issues, and failed out-patient treatments, - past re-admission history, safety of patient, and lack of - compliance as applicable. Specific rationale supporting this admission is: Chest pain with runs of V. tach
--- NOTE | 2016-10-13 12:49 | PN- Att Addend ---
Attending Addendum Attending Brief Note Patient has no complaints on evaluation this morning. He had few runs of V. tach since admission however asymptomatic. General Appearance: Alert, No Acute Distress Skin: Grossly normal HEENT: PEERLA Neck: Supple, No JVD Cardiovascular: Regular Rate, Normal S1, Normal S2, No Murmurs Lungs: Clear to Auscultation, Normal Air Movement Abdomen: Normal Bowel Sounds, Soft, No Tenderness Neurological: Normal Speech, Strength at 5/5 X4 Ext, Cranial Nerves 3-12 NL, Reflexes 2+ Extremities: Right leg edema Vascular: Normal Pulses Assessment 66-year-old history of hypertension, anxiety, vertigo evaluated by ENT recently and awaiting for most likely what it appears to be a tilt table test rescheduled for possible underlying orthostatic hypotension giving rise to vertigo presents with complaints of chest tightness and pressure. He had a similar symptoms back in July at that point echo was negative however patient refused to have a stress test. He was also recently evaluated by pulmonary and underwent pulmonary function test results of which are currently pending. Since admission he has had frequent runs of V. tach. Patient is very reluctant to undergo any invasive testing including stress test also he refused to have ultrasound of his bilateral lower extremity. At this point we will continue his beta blockers and defer further management of V. tach and hypertension to cardiology. Plan Continue monitoring telemetry Check orthostatics Start low-dose statins Continue beta blockers and other home meds Cardiology evaluation Cycle Troponins and EKGs DVT prophylaxis Continue other home meds Current Medications Sig/Maggie Start time Last Medication Dose Route Stop Time Status Admin Acetaminophen 650 MG Q6P PRN 10/13 004 AC 10/13 PO 1222 Alprazolam 0.5 MG ONCE ONE 10/13 1115 DC 10/13 PO 10/13 1116 1107 Aspirin 0 .STK-MED ONE 10/12 2221 DC PO Aspirin 325 MG ONCE ONE 10/12 2215 DC 10/12 PO 10/12 2216 2219 Aspirin Buffered 81 MG DAILY 10/13 1000 AC 10/13 PO 0836 Buspirone HCl 15 MG AT BEDTIME NEED.. 10/13 0045 AC PO Diltiazem HCl 360 MG DAILY 10/13 1000 AC 10/13 PO 0835 Heparin Sodium 0 .STK-MED ONE 10/13 0045 DC (Porcine) .ROUTE Heparin Sodium 5,000 UNIT Q8 10/13 0027 AC 10/13 (Porcine) SC 0659 Hydrochlorothiazide 12.5 MG DAILY 10/13 1000 AC 10/13 PO 0836 Lidocaine/Diphenhydr/ 10 ML Q6PRN PRN 10/13 1215 AC Alum/Mg/Simeth PO Lisinopril 10 MG DAILY 10/13 1000 AC 10/13 PO 0836 Magnesium Sulfate 0 .STK-MED ONE 10/13 0045 DC .ROUTE Magnesium Sulfate 1 GM ONCE ONE 10/13 0030 DC 10/13 Dextrose/Water 100 ML IV 10/13 0129 0057 Melatonin 3 MG ONCE ONE 10/13 0415 DC 10/13 PO 10/13 0416 0415 Metoprolol Succinate 75 MG DAILY 10/14 1000 AC PO Metoprolol Succinate 50 MG DAILY 10/13 1000 DC 10/13 PO 0848 Laboratory Tests 10/13 10/12 0600 2208 Chemistry Sodium (137 - 145 mmol/L) 139 Potassium (3.5 - 5.1 mmol/L) 4.6 Chloride (98 - 107 mmol/L) 101 Carbon Dioxide (22 - 30 mmol/L) 26 Anion Gap (5 - 16) 13 BUN (9 - 20 mg/dL) 21 H Creatinine (0.7 - 1.2 mg/dL) 1.0 Estimated GFR (>60 ml/min) > 60 BUN/Creatinine Ratio (7 - 25 %) 21.0 Glucose (65 - 99 mg/dL) 114 H Calcium (8.4 - 10.2 mg/dL) 9.3 Magnesium (1.6 - 2.3 mg/dL) 1.9 Total Bilirubin (0.2 - 1.3 mg/dL) 0.5 AST (17 - 59 U/L) 21 ALT (21 - 72 U/L) 39 Alkaline Phosphatase (< 127 U/L) 98 Troponin I (<0.11 ng/ml) < 0.01 < 0.01 Total Protein (6.3 - 8.2 g/dL) 7.7 Albumin (3.5 - 5.0 g/dL) 4.0 Globulin (1.9 - 4.2 gm/dL) 3.7 Albumin/Globulin Ratio (1.1 - 2.2 %) 1.1 Triglycerides (<150 mg/dL) 133 Cholesterol (< 200 MG/DL) 199 LDL Cholesterol, Calc (65 - 129 mg/dL) 137 H HDL Cholesterol (40 - 60 mg/dL) 36 L Cholesterol/HDL Ratio (0.00 - 4.88 %) 5 H TSH (0.270 - 4.200 uIU/mL) 2.500 Hematology CBC w Diff NO MAN DIFF REQ WBC (4.8 - 10.8 /CUMM) 12.1 H RBC (4.70 - 6.10 /CUMM) 5.32 Hgb (14.0 - 18.0 G/DL) 14.6 Hct (42 - 52 %) 44.3 MCV (80.0 - 94.0 FL) 83.4 MCH (27.0 - 31.0 PG) 27.5 RDW (11.5 - 14.5 %) 15.0 H Plt Count (130 - 400 /CUMM) 315 MPV (7.4 - 10.4 FL) 7.3 L Gran % (42.2 - 75.2 %) 68.6 Lymphocytes % (20.5 - 51.1 %) 20.6 Monocytes % (1.7 - 9.3 %) 9.1 Eosinophils % (0 - 5 %) 1.4 Basophils % (0.0 - 2.0 %) 0.3 Absolute Granulocytes (1.4 - 6.5 /CUMM) 8.3 H Absolute Lymphocytes (1.2 - 3.4 /CUMM) 2.5 Absolute Monocytes (0.10 - 0.60 /CUMM) 1.1 H Absolute Eosinophils (0.0 - 0.7 /CUMM) 0.2 Absolute Basophils (0.0 - 0.2 /CUMM) 0 PUBS MCHC (33.0 - 37.0 G/DL) 32.9 L Vital Signs Date Time Temp Pulse Resp B/P Pulse O2 O2 Flow FiO2 Ox Delivery Rate 10/13 0848 115 170/62 /08 0836 115 170/62 /08 0743 98.7 115 170/62 94 /08 0225 104 160/80 /08 0141 97.5 104 20 190/100 95 Room Air /08 0011 92 16 180/90 95 Room Air /07 2332 90 16 160/80 95 Room Air 07 2230 Room Air 10/12 2124 97.8 96 22 140/106 96 Room Air
[2016-10-13 16:00] VITALS: BP 106/68
--- NOTE | 2016-10-13 18:00 | Cons- Cardiology ---
General Information and HPI Consulting Request Date of Consult: 10/13/16 Requested By: DURAN BEE MD Reason for Consult: Ventricular tachycardia. Source of Information: patient, family, old records Exam Limitations: clinical condition, poor historian History of Present Illness: Mr. Aroldo Looney is a 66-year-old male with a history of hypertension, vertigo, severe anxiety, incarcerated right inguinal hernia s/p repair (05/01/2016), and chest pain syndrome who presented to the ED after's experiencing chest discomfort ("tightness") while at [employer] and shortness of breath while walking home. He states he has had similar episodes in the past and claims the episode on his anxiety. While in the ED and since admission he has had very frequent ventricular ectopy, during which she was completely asymptomatic, including numerous runs of ventricular tachycardia, one of which was 36 beats in duration. The patient states that he had an echocardiogram performed approximately 5 weeks ago that was "normal". He has been recommended stress testing in the past and has refused to have this performed. Allergies/Medications Allergies: Coded Allergies: Penicillins (Intermediate, HIVES 09/05/15) Home Med List: Buspirone HCl 15 MG TABLET 1 TAB PO AT BEDTIME PRN ANXIETY (Reported) Diltiazem HCl (Cardizem Cd) 360 MG CAP.ER.24H 1 CAP PO DAILY HEART HEALTH ( Reported) Lisinopril/Hydrochlorothiazide (Lisinopril-Hctz 10-12.5 MG Tab) 10 MG-12.5 MG TABLET 1 TAB PO DAILY HEART/BP (Reported) Meclizine HCl 25 MG TABLET 1 TAB PO TID DIZZYNESS (Reported) Metoprolol Succinate 50 MG TAB.ER.24H 1 TAB PO DAILY HTN (Reported) Triamcinolone Acetonide 0.025 % OINT...G. 1 MICHAEL TOP BID PRN RASH (Reported) apply to affected area(s) Review of Systems Review of Systems: A 14 point system review was obtained was knocked territory, other than as above. 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 Home Who Do You Live With? self Services at Home: None Primary Language: [place] Smoking Status: Never Smoked ETOH Use: occasional use Illicit Drug Use: denies illicit drug use Functional Ability ADLs Independent: dressing, eating, toileting, bathing. Ambulation: independent Employment History Employment: Retired Exam & Diagnostic Data Vital Signs and I&O Vital Signs Date Time Temp Pulse Resp B/P Pulse O2 O2 Flow FiO2 Ox Delivery Rate 10/13 1600 98.0 61 20 106/68 93 Room Air 10/13 0848 115 170/62 10/13 0836 115 170/62 10/13 0743 98.7 115 170/62 94 10/13 0225 104 160/80 10/13 0141 97.5 104 20 190/100 95 Room Air 10/13 0011 92 16 180/90 95 Room Air 10/12 2332 90 16 160/80 95 Room Air 10/12 2230 Room Air 10/12 2124 97.8 96 22 140/106 96 Room Air Intake & Output 10/13 1600 10/13 0810/13 0000 10/12 1600 10/12 0800 10/12 0000 Intake Total 500 630 Output Total Balance 500 630 Intake, IV 150 Intake, Oral 500 480 Patient 229 lb 229 lb Weight Physical Exam: Well-developed, overweight male in no acute distress with nasal oxygen in place. Vital signs: See above. HEENT: Normocephalic, atraumatic, EOMI, moist mucous membranes. Neck: No JVD, no bruits. Lungs: Clear to auscultation bilaterally. Heart: S1, S2 with no murmur, gallop, or rub appreciated. PMI fifth ICS at [facility]. Abdomen: Soft, nontender, positive bowel sounds. Extremities: No edema. Labs/Julio Results: Laboratory Tests 10/13 10/13 10/12 1310 0600 2208 Chemistry Sodium (137 - 145 mmol/L) 139 Potassium (3.5 - 5.1 mmol/L) 4.6 Chloride (98 - 107 mmol/L) 101 Carbon Dioxide (22 - 30 mmol/L) 26 Anion Gap (5 - 16) 13 BUN (9 - 20 mg/dL) 21 H Creatinine (0.7 - 1.2 mg/dL) 1.0 Estimated GFR (>60 ml/min) > 60 BUN/Creatinine Ratio (7 - 25 %) 21.0 Glucose (65 - 99 mg/dL) 114 H Calcium (8.4 - 10.2 mg/dL) 9.3 Magnesium (1.6 - 2.3 mg/dL) 1.9 Total Bilirubin (0.2 - 1.3 mg/dL) 0.5 AST (17 - 59 U/L) 21 ALT (21 - 72 U/L) 39 Alkaline Phosphatase (< 127 U/L) 98 Troponin I (<0.11 ng/ml) < 0.01 < 0.01 < 0.01 Total Protein (6.3 - 8.2 g/dL) 7.7 Albumin (3.5 - 5.0 g/dL) 4.0 Globulin (1.9 - 4.2 gm/dL) 3.7 Albumin/Globulin Ratio (1.1 - 2.2 %) 1.1 Triglycerides (<150 mg/dL) 133 Cholesterol (< 200 MG/DL) 199 LDL Cholesterol, Calc (65 - 129 mg/dL) 137 H HDL Cholesterol (40 - 60 mg/dL) 36 L Cholesterol/HDL Ratio (0.00 - 4.88 %) 5 H TSH (0.270 - 4.200 uIU/mL) 2.500 Hematology CBC w Diff NO MAN DIFF REQ WBC (4.8 - 10.8 /CUMM) 12.1 H RBC (4.70 - 6.10 /CUMM) 5.32 Hgb (14.0 - 18.0 G/DL) 14.6 Hct (42 - 52 %) 44.3 MCV (80.0 - 94.0 FL) 83.4 MCH (27.0 - 31.0 PG) 27.5 RDW (11.5 - 14.5 %) 15.0 H Plt Count (130 - 400 /CUMM) 315 MPV (7.4 - 10.4 FL) 7.3 L Gran % (42.2 - 75.2 %) 68.6 Lymphocytes % (20.5 - 51.1 %) 20.6 Monocytes % (1.7 - 9.3 %) 9.1 Eosinophils % (0 - 5 %) 1.4 Basophils % (0.0 - 2.0 %) 0.3 Absolute Granulocytes (1.4 - 6.5 /CUMM) 8.3 H Absolute Lymphocytes (1.2 - 3.4 /CUMM) 2.5 Absolute Monocytes (0.10 - 0.60 /CUMM) 1.1 H Absolute Eosinophils (0.0 - 0.7 /CUMM) 0.2 Absolute Basophils (0.0 - 0.2 /CUMM) 0 PUBS MCHC (33.0 - 37.0 G/DL) 32.9 L Diagnostic Data EKG Results (10/13/2016) sinus rhythm, multiple PVCs, LVH voltage, and consider old ASMI. CXR Results (10/12/2016) no acute cardiopulmonary process. Assessment/Plan Assessment/Plan Mr. Looney is a 66-year-old male with a history of hypertension, vertigo, severe anxiety, incarcerated right inguinal hernia s/p repair (2015), and chest pain syndrome who presented to the ED after's experiencing chest discomfort ("tightness") while at [employer] and shortness of breath while walking home. Unfortunately, we do not have his recent echocardiogram and he has refused stress testing in the past. Recommendations: * Continue on telemetry to further evaluate his ventricular ectopy. * Continue beta jamison therapy and consider increase. * Obtain echocardiogram report from his attending cyber security engineer on Saturday (Gem Hawk M.D.). * Maintain magnesium at or above 2.0 mEq per liter. * Given the fact that he has recurrent chest discomfort that he states at times his exertional and frequent ventricular ectopy including runs of ventricular tachycardia, would consider revisiting the issue of stress testing or cardiac catheterization. * DVT prophylaxis. Further recommendations will follow, Thank you. Consult Acknowledgment - Thank you for your consult request.
[2016-10-13 20:05] VITALS: BP 122/56
[2016-10-14 00:30] VITALS: BP 132/88
[2016-10-14 08:13] VITALS: BP 116/90
--- NOTE | 2016-10-14 11:19 | PN- Att Addend ---
Attending Addendum Attending Brief Note Patient has no complaints on evaluation this morning. He had few runs of V. tach since admission however asymptomatic. General Appearance: Alert, No Acute Distress Skin: Grossly normal HEENT: PEERLA Neck: Supple, No JVD Cardiovascular: Regular Rate, Normal S1, Normal S2, No Murmurs Lungs: Clear to Auscultation, Normal Air Movement Abdomen: Normal Bowel Sounds, Soft, No Tenderness Neurological: Normal Speech, Strength at 5/5 X4 Ext, Cranial Nerves 3-12 NL, Reflexes 2+ Extremities: Right leg edema Vascular: Normal Pulses Assessment Ultrasound bilateral reduction Mittie pending at this point. Troponins 3 negative. However he will need further cardiac testing including stress test to evaluate the cause for ventricular tachycardia. No clear source of vertigo., Orthostats negative. We will keep patient in house for next 24 hours, and in a.m. his primary principal technical architect and Dr. Reilly can discuss with patient for further management of his cardiac issue since patient is reluctant to undergo any further testing. Recent PFTs demonstrate restrictive lung disease. Plan Continue monitoring telemetry Continue beta blockers and other home meds DVT prophylaxis Continue other home meds Current Medications Sig/Maggie Start time Last Medication Dose Route Stop Time Status Admin Acetaminophen 650 MG Q6P PRN 10/13 0045 AC 10/13 PO 1222 Aspirin Buffered 81 MG DAILY 10/13 1000 AC 10/14 PO 0848 Atorvastatin Calcium 20 MG 1700 10/13 1700 AC 10/13 PO 2000 Buspirone HCl 15 MG AT BEDTIME NEED.. 10/13 0045 AC 10/13 PO 2109 Diltiazem HCl 360 MG DAILY 10/13 1000 AC 10/14 PO 0848 Heparin Sodium 5,000 UNIT Q8 10/13 0027 AC 10/14 (Porcine) SC 0613 Hydrochlorothiazide 12.5 MG DAILY 10/13 1000 AC 10/14 PO 0848 Lidocaine/Diphenhydr/ 10 ML Q6PRN PRN 10/13 1215 AC 10/14 Alum/Mg/Simeth PO 0919 Lisinopril 10 MG DAILY 10/13 1000 AC 10/14 PO 0848 Melatonin 3 MG AT BEDTIME NEED.. 10/13 2215 AC 10/13 PO 2231 Metoprolol Succinate 75 MG DAILY 10/14 1000 AC PO Laboratory Tests 10/14 10/13 0653 1310 Chemistry Sodium (137 - 145 mmol/L) 136 L Potassium (3.5 - 5.1 mmol/L) 4.7 Chloride (98 - 107 mmol/L) 101 Carbon Dioxide (22 - 30 mmol/L) 29 Anion Gap (5 - 16) 6 BUN (9 - 20 mg/dL) 19 Creatinine (0.7 - 1.2 mg/dL) 1.0 Estimated GFR (>60 ml/min) > 60 BUN/Creatinine Ratio (7 - 25 %) 19.0 Magnesium (1.6 - 2.3 mg/dL) 2.2 Troponin I (<0.11 ng/ml) < 0.01 Vital Signs Date Time Temp Pulse Resp B/P Pulse O2 O2 Flow FiO2 Ox Delivery Rate 10/14 0848 55 116/90 10/14 0813 98.5 55 16 116/90 95 Room Air 10/14 0030 98.1 50 18 132/88 94 Room Air 10/14 0000 Room Air 10/13 2004 64 122/56 10/13 1600 98.0 61 20 106/68 93 Room Air
--- NOTE | 2016-10-14 11:56 | PN- Housestaff ---
Subjective Follow-up For: Chest discomfort Anxiety Complaints: no complaints Tele-Events Since Last Visit: Sinus bradycardia HR 47-54, PVCs and triplets Subjective: I saw and examined the patient today morning. He reports he is feeling much better and want to go home. He however agreed to get a doppler Ultrasound of his leg to rule out a clot. Review of Systems Constitutional: Reports: see HPI. Denies: chills, fever. Cardiovascular: Denies: chest pain, orthopena, palpitations. Respiratory: Denies: cough, short of breath. Gastrointestinal: Denies: abdominal pain, constipation, diarrhea. Genitourinary: Denies: dysuria. Objective Last 24 Hrs of Vital Signs/I&O Vital Signs Date Time Temp Pulse Resp B/P Pulse O2 O2 Flow FiO2 Ox Delivery Rate 10/14 2128 62 94/60 10/14 1600 98.9 59 18 112/70 99 Room Air 10/14 0848 55 116/90 10/14 0813 98.5 55 16 116/90 95 Room Air 10/14 0030 98.1 50 18 132/88 94 Room Air 10/14 0000 Room Air Intake & Output 10/14 1600 10/14 0800 10/14 0000 Intake Total 600 450 620 Output Total 500 Balance 600 -50 620 Intake, IV 20 Intake, Oral 600 450 600 Number 2 0 Bowel Movements Output, Urine 500 Physical Exam General Appearance: Alert, Oriented X3, Cooperative, No Acute Distress Skin: No Rashes HEENT: Atraumatic, PERRLA, EOMI, Mucous Membr. moist/pink Neck: Supple, No JVD, No thryomegaly Lymphatic: Cervical nl Cardiovascular: Regular Rate, Normal S1, Normal S2, No Murmurs Lungs: Clear to Auscultation, Normal Air Movement Abdomen: Normal Bowel Sounds, Soft, No Tenderness, No Hepatospenomegaly Neurological: Normal Speech, Strength at 5/5 X4 Ext, Normal Tone Current Medications: Current Medications Sig/Maggie Start time Last Medication Dose Route Stop Time Status Admin Acetaminophen 650 MG Q6P PRN 10/13 0045 AC 10/13 PO 1222 Aspirin Buffered 81 MG DAILY 10/13 1000 AC 10/14 PO 0848 Atorvastatin Calcium 20 MG 1700 10/13 1700 AC 10/14 PO 1628 Buspirone HCl 15 MG AT BEDTIME NEED.. 10/13 0045 AC 10/14 PO 2120 Diltiazem HCl 360 MG DAILY 10/13 1000 AC 10/14 PO 0848 Heparin Sodium 5,000 UNIT Q8 10/13 0027 AC 10/14 (Porcine) SC 2104 Hydrochlorothiazide 12.5 MG DAILY 10/13 1000 AC 10/14 PO 0848 Lidocaine/Diphenhydr/ 10 ML Q6PRN PRN 10/13 1215 AC 10/14 Alum/Mg/Simeth PO 2120 Lisinopril 10 MG DAILY 10/13 1000 AC 10/14 PO 0848 Melatonin 3 MG AT BEDTIME NEED.. 10/13 2215 AC 10/14 PO 2120 Metoprolol Succinate 75 MG DAILY 10/14 1000 AC PO Last 24 Hrs of Lab/Julio Results Last 24 Hrs of Labs/Mics: Laboratory Tests 10/14/16 0653: Anion Gap 6, Estimated GFR > 60, BUN/Creatinine Ratio 19.0, Magnesium 2.2 Assessment/Plan Assessment: Patient is a 66 year old male, with PMH of HTN, anxiety, vertigo, recent admission in Jul 2016 with chest pain, who is brought to the ED due to experiencing chest tightness and pressure accompanied by difficulty breathing. Symptoms improved with Buspar. Patient has had multiple episodes of Vtach in the ED with no symptoms. He is admitted to telemetry floor for monitoring and to rule out ACS. Problem list and plan: Acute onset chest tightness Patient has a recent history of chest pain in July 2016 for which ACS was ruled out. He also has history anxiety and PVCs. He has had multiple PVCs, one time 23 beats yesterday around 11:13 pm. However he has been having bradycardia overnight and today. Will recommend holding metoprolol today. * repeat troponin and EKG are negative * Was tachycardic and hypertensive, several runs of V.tach yesterday. However he is now having bradycardia) * aspirin 81 mg daily * Consider decreasing metoprolol to 50mg daily, * Continue lisinopril 10 mg daily, cardizem 360 mg daily, HCTZ * Cardiology input appreciated * Will revisit stress test in AM (patient refused this previously) Asymmetric swelling of legs * R>L - unilateral doppler ultrasound of right leg negative for DVT Hyperlipidemia * LDL 137, HDL 36, cholesterol 199 * Started on low dose statin - Atorvastatin 20mg daily History of anxiety * continue buspirone 15 mg at bedtime PRN Pain mild pathway Diet heart healthy DVT px with SC heparin FULL CODE Problem List: 1. Ventricular tachycardia 2. Anxiety 3. Chest pain 4. Hypertension Pain Ratin Pain Location: None Pain Goal: Pain 4 or less Pain Plan: Tylenol PRN Tomorrow's Labs & Rationales: None DVT/Prophylaxis: pharmacological
--- NOTE | 2016-10-14 14:45 | ULTRASOUND REPORT ---
EXAMINATION: US TRIPLEX LOWER EXTREMITY, RIGHT CLINICAL INFORMATION: Ventricular tachycardia. Right extremity edema and swelling. COMPARISON: None TECHNIQUE: Color-flow triplex imaging with spectral analysis and compression Doppler were performed on the right lower extremity. FINDINGS: Respiratory variation, normal compression and augmented flow are noted throughout the lower extremity. The visualized common femoral vein, superficial femoral vein, profunda femoral vein, popliteal vein and midcalf peroneal and posterior tibial venous segments show no evidence of deep venous thrombosis. There is a hypoechoic collection within the popliteal fossa measuring 2.6 x 0.6 x 1.7 cm. There is no associated abnormal vascular flow with this finding. IMPRESSION: Normal triplex scan without evidence of deep venous thrombosis involving the right lower extremity. Popliteal cyst as described.
[2016-10-14 16:00] VITALS: BP 112/70
[2016-10-14 21:29] VITALS: BP 94/60
--- NOTE | 2016-10-14 22:40 | PN- Cardiology ---
Subjective Subjective: No complaints and ambulating often and without difficulty. On telemetry, he had been running 60-66 bpm, but toward the evening is now around 52 bpm. Much less ventricular ectopy that earlier. Objective Vital Signs and I&Os Vital Signs Date Time Temp Pulse Resp B/P Pulse O2 O2 Flow FiO2 Ox Delivery Rate 10/14 2128 62 94/60 10/14 1600 98.9 59 18 112/70 99 Room Air 10/14 0848 55 116/90 10/14 0813 98.5 55 16 116/90 95 Room Air 10/14 0030 98.1 50 18 132/88 94 Room Air 10/14 0000 Room Air Intake & Output 10/14 1600 10/14 0810/14 0000 10/13 1600 10/13 0000 Intake Total 600 450 620 500 630 Output Total 500 Balance 600 -50 620 500 630 Intake, IV 20 150 Intake, Oral 600 450 600 500 480 Number 2 0 Bowel Movements Output, Urine 500 Patient 229 lb 229 lb Weight Physical Exam: Well-developed, overweight male in no acute distress with nasal oxygen in place. Vital signs: See above. HEENT: Normocephalic, atraumatic, EOMI, moist mucous membranes. Neck: No JVD, no bruits. Lungs: Clear to auscultation bilaterally. Heart: S1, S2 with no murmur, gallop, or rub appreciated. PMI fifth ICS at [facility]. Abdomen: Soft, nontender, positive bowel sounds. Extremities: No edema. Current Medications: Current Medications Sig/Maggie Start time Last Medication Dose Route Stop Time Status Admin Acetaminophen 650 MG Q6P PRN 10/13 0045 AC 10/13 PO 1222 Aspirin Buffered 81 MG DAILY 10/13 1000 AC 10/14 PO 0848 Atorvastatin Calcium 20 MG 1700 10/13 1700 AC 10/14 PO 1628 Buspirone HCl 15 MG AT BEDTIME NEED.. 10/13 0045 AC 10/14 PO 2120 Diltiazem HCl 360 MG DAILY 10/13 999 AC 10/14 PO 0848 Heparin Sodium 5,000 UNIT Q8 10/13 0027 AC 10/14 (Porcine) SC 2104 Hydrochlorothiazide 12.5 MG DAILY 10/13 1000 AC 10/14 PO 0848 Lidocaine/Diphenhydr/ 10 ML Q6PRN PRN 10/13 1215 AC 10/14 Alum/Mg/Simeth PO 2120 Lisinopril 10 MG DAILY 10/13 1000 AC 10/14 PO 0848 Melatonin 3 MG AT BEDTIME NEED.. 10/13 2215 AC 10/14 PO 2120 Metoprolol Succinate 75 MG DAILY 10/14 1000 AC PO Results Last 48 Hrs of Labs/Mics: Laboratory Tests 10/14/16 0653: Anion Gap 6, Estimated GFR > 60, BUN/Creatinine Ratio 19.0, Magnesium 2.2 10/13/16 1310: Troponin I < 0.01 10/13/16 0600: Troponin I < 0.01, Triglycerides 133, Cholesterol 199, LDL Cholesterol, Calc 137 H, HDL Cholesterol 36 L, Cholesterol/HDL Ratio 5 H Recent Imaging Studies: Right lower extremity ultrasound (10/14/2016): Normal triplex scan without evidence of deep venous thrombosis involving the right lower extremity. Popliteal cyst as described. Assessment/Plan Assessment/Plan Mr. Looney is a 66-year-old male with a history of hypertension, vertigo, severe anxiety, incarcerated right inguinal hernia s/p repair (2015), and chest pain syndrome who presented to the ED after's experiencing chest discomfort ("tightness") while at [employer] and shortness of breath while walking home. Unfortunately, we do not have his recent echocardiogram and he has refused stress testing in the past. Recommendations: * Continue on telemetry to further evaluate his ventricular ectopy. * Continue beta jamison therapy. * Obtain echocardiogram report from his attending chipper (Gem Hawk M.D.), tomorrow (10/15/2016). * Given the fact that he has recurrent chest discomfort, that he states at times his exertional and frequent ventricular ectopy including runs of ventricular tachycardia, would consider revisiting the issue of stress testing or cardiac catheterization. * Continue DVT prophylaxis. Continue telemetry? Yes
[2016-10-15 00:52] VITALS: BP 96/60
--- NOTE | 2016-10-15 07:41 | PN- Housestaff ---
Subjective Follow-up For: Chest pressure Tele-Events Since Last Visit: Multiple ventricular ectopies with nonsustained ventricular tachycardia this morning Subjective: Patient reports he is feeling fine. No any overnight events reported. Denies chest pain/pressure, palpitations, syncope, shortness of breath, orthopnea, PND, abdominal pain, acid reflux Review of Systems Constitutional: Reports: see HPI. Objective Last 24 Hrs of Vital Signs/I&O Vital Signs Date Time Temp Pulse Resp B/P Pulse O2 O2 Flow FiO2 Ox Delivery Rate 10/15 1142 86 138/60 10/15 1036 76 124/74 10/15 08 98.1 60 18 122/64 95 Room Air 10/15 0052 97.7 56 18 96/60 95 Room Air 10/14 2129 62 94/60 10/14 1600 98.9 59 18 112/70 99 Room Air Intake & Output 10/15 1600 10/15 0800 10/15 0000 Intake Total 240 460 Output Total Balance 240 460 Intake, IV 10 Intake, Oral 240 450 Number 0 Bowel Movements Physical Exam General Appearance: Alert, Oriented X3, Cooperative, No Acute Distress Skin: No Rashes Cardiovascular: Regular Rate, Normal S1, Normal S2, 3 x 6 systolic murmur present in the parasternal area Lungs: Clear to Auscultation Abdomen: Normal Bowel Sounds, Soft, No Tenderness Neurological: Normal Speech, Normal Tone Extremities: No Clubbing, No Cyanosis, No Edema Current Medications: Current Medications Sig/Maggie Start time Last Medication Dose Route Stop Time Status Admin Acetaminophen 650 MG Q6P PRN 10/13 0045 AC 10/13 PO 1222 Alprazolam 0.5 MG ONCE ONE 10/16 08 AC PO 10/16 0801 Aspirin Buffered 81 MG DAILY 10/13 1000 AC 10/15 PO 1036 Atorvastatin Calcium 20 MG 1700 10/13 1700 AC 10/14 PO 1628 Buspirone HCl 15 MG AT BEDTIME NEED.. 10/13 0045 AC 10/14 PO 2120 Diltiazem HCl 360 MG DAILY 10/13 1000 AC 10/15 PO 1034 Heparin Sodium 5,000 UNIT Q8 10/13 0027 AC 10/15 (Porcine) SC 0625 Hydrochlorothiazide 12.5 MG DAILY 10/13 1000 AC 10/15 PO 1036 Lidocaine/Diphenhydr/ 10 ML Q6PRN PRN 10/13 1215 AC 10/15 Alum/Mg/Simeth PO 0629 Lisinopril 10 MG DAILY 10/13 1000 AC 10/15 PO 1036 Melatonin 3 MG AT BEDTIME NEED.. 10/13 2215 AC 10/14 PO 2120 Metoprolol Succinate 75 MG DAILY 10/14 1000 AC 10/15 PO 1142 Assessment/Plan Assessment: Patient is a 66 year old male, with PMH of HTN, anxiety, vertigo, recent admission in Jul 2016 with chest pain, who is brought to the ED due to experiencing chest tightness and pressure accompanied by difficulty breathing. Symptoms improved with Buspar. Patient has had multiple episodes of Vtach in the ED with no symptoms. He is admitted to telemetry floor for monitoring and to rule out ACS. Problem list and plan: 1. Acute onset chest tightness Patient has a recent history of chest pain in July 2016 for which ACS was ruled out. He also has history anxiety and PVCs. - Troponin 3 has been negative -Patient continues to have nonsustained ventricular tachycardia and multiple ventricular ectopies. Echocardiogram pending to rule out regional wall motion abnormalities - He may have coronary artery disease and will need stress test which as per the yarding engineer will be done as an inpatient in a.m. -We'll keep patient nothing by mouth after midnight -There was evidence of some bradycardia overnight, but given his ventricular ectopics should be on beta jamison -We will continue aspirin 2. Hypertension - Blood pressure within normal limits -We'll continue hydrochlorothiazide, diltiazem, lisinopril 3. Hyperlipidemia - Was started on statins which we will continue 4. History of anxiety - Continue buspirone Diet heart healthy DVT px with SC heparin FULL CODE Problem List: 1. Ventricular tachycardia 2. Hypertension 3. Chest pain Pain Ratin Pain Location: BACK Pain Goal: Remain pain free Pain Plan: As mentioned Tomorrow's Labs & Rationales: Will need labs
[2016-10-15 08:00] VITALS: BP 122/64
--- NOTE | 2016-10-15 10:39 | PN- Att Addend ---
Attending Addendum Attending Brief Note Events over the weekend noted,patient feeling better no chest pain BP slightly lower than ususl at times, patient is a febrile. Sister at the bedside. Appreciate Dr. Hawk's input and recommendations. No new changes on physical. Patient will have an echocardiogram today, and agreed to the Persantin nuclear test in a.m. Continue present treatment for now. Intake & Output 10/15 1600 10/15 0400 10/14 1600 10/14 0400 10/13 1600 10/13 0400 Intake Total 001 462 7499 620 1030 100 Output Total 500 Balance 240 460 855 070 2293 100 Intake, IV 10 20 50 100 Intake, Oral 611 076 4435 600 980 Number 0 2 0 Bowel Movements Output, Urine 500 Patient 229 lb Weight Current Medications Sig/Maggie Start time Last Medication Dose Route Stop Time Status Admin Acetaminophen 650 MG Q6P PRN 10/13 0045 AC 10/13 PO 1222 Aspirin Buffered 81 MG DAILY 10/13 1000 AC 10/15 PO 1036 Atorvastatin Calcium 20 MG 1700 10/13 1700 AC 10/14 PO 1628 Buspirone HCl 15 MG AT BEDTIME NEED.. 10/13 0045 AC 10/14 PO 2120 Diltiazem HCl 360 MG DAILY 10/13 1000 AC 10/15 PO 1034 Heparin Sodium 5,000 UNIT Q8 10/13 0027 AC 10/15 (Porcine) SC 0625 Hydrochlorothiazide 12.5 MG DAILY 10/13 1000 AC 10/15 PO 1036 Lidocaine/Diphenhydr/ 10 ML Q6PRN PRN 10/13 1215 AC 10/15 Alum/Mg/Simeth PO 0629 Lisinopril 10 MG DAILY 10/13 1000 AC 10/15 PO 1036 Melatonin 3 MG AT BEDTIME NEED.. 10/13 2215 AC 10/14 PO 2120 Metoprolol Succinate 75 MG DAILY 10/14 1000 AC PO Laboratory Tests 10/14/16 0653: Anion Gap 6, Estimated GFR > 60, BUN/Creatinine Ratio 19.0, Magnesium 2.2 10/13/16 1310: Troponin I < 0.01 10/13/16 0600: Troponin I < 0.01, Triglycerides 133, Cholesterol 199, LDL Cholesterol, Calc 137 H, HDL Cholesterol 36 L, Cholesterol/HDL Ratio 5 H 10/12/16 2208: Anion Gap 13, Estimated GFR > 60, BUN/Creatinine Ratio 21.0, Glucose 114 H, Calcium 9.3, Magnesium 1.9, Total Bilirubin 0.5, AST 21, ALT 39, Alkaline Phosphatase 98, Troponin I < 0.01, Total Protein 7.7, Albumin 4.0, Globulin 3.7, Albumin/Globulin Ratio 1.1, TSH 2.500, CBC w Diff NO MAN DIFF REQ, RBC 5.32, MCV 83.4, MCH 27.5, RDW 15.0 H, MPV 7.3 L, Gran % 68.6, Lymphocytes % 20.6, Monocytes % 9.1, Eosinophils % 1.4, Basophils % 0.3, Absolute Granulocytes 8.3 H, Absolute Lymphocytes 2.5, Absolute Monocytes 1.1 H, Absolute Eosinophils 0.2 , Absolute Basophils 0, PUBS MCHC 32.9 L
--- NOTE | 2016-10-15 11:00 | NUR ---
Patient reporting "no heaviness in chest or chest pain". Patient OOB ad kiara in room and in hallway throughout the morning. Sister at bedside for emotional support. Patient on the tele monitor: noted Accelerated ventricular rhythm at 0930 this morning. No symptoms reported by patient. Also PVC's couplets and triplets noted. Medications given as per EMAR. Reviewed medications with Resident. Bp 138/60, P 86. Notified Dr Silvia Trevino #[phone] of the tele monitor readings. Per Resident will continue to monitor. Stress test to be done 10/16/16.
--- NOTE | 2016-10-15 11:18 | PN- Cardiology ---
Subjective Subjective: Overall doing well. Very anxious about current issues. Ambulated today with no symptoms. Persistent ventricular ectopy noted on the monitor however. Extended discussion with patient and family about the role of stress testing, etc. Objective Vital Signs and I&Os Vital Signs Date Time Temp Pulse Resp B/P Pulse O2 O2 Flow FiO2 Ox Delivery Rate 10/15 1036 76 124/74 10/15 08 98.1 60 18 122/64 95 Room Air 10/15 0052 97.7 56 18 96/60 95 Room Air 10/14 2129 62 94/60 10/14 1600 98.9 59 18 112/70 99 Room Air Intake & Output 10/15 1600 10/15 0810/15 0000 10/14 1600 10/14 0000 Intake Total 240 460 600 450 620 Output Total 500 Balance 240 460 600 -50 620 Intake, IV 10 20 Intake, Oral 240 450 600 450 600 Number 0 2 0 Bowel Movements Output, Urine 500 Current Medications: Current Medications Sig/Maggie Start time Last Medication Dose Route Stop Time Status Admin Acetaminophen 650 MG Q6P PRN 10/13 0045 AC 10/13 PO 1222 Aspirin Buffered 81 MG DAILY 10/13 1000 AC 10/15 PO 1036 Atorvastatin Calcium 20 MG 1700 10/13 1700 AC 10/14 PO 1628 Buspirone HCl 15 MG AT BEDTIME NEED.. 10/13 0045 AC 10/14 PO 2120 Diltiazem HCl 360 MG DAILY 10/13 1000 AC 10/15 PO 1034 Heparin Sodium 5,000 UNIT Q8 10/13 0027 AC 10/15 (Porcine) SC 0625 Hydrochlorothiazide 12.5 MG DAILY 10/13 1000 AC 10/15 PO 1036 Lidocaine/Diphenhydr/ 10 ML Q6PRN PRN 10/13 1215 AC 10/15 Alum/Mg/Simeth PO 0629 Lisinopril 10 MG DAILY 10/13 1000 AC 10/15 PO 1036 Melatonin 3 MG AT BEDTIME NEED.. 10/13 2215 AC 10/14 PO 2120 Metoprolol Succinate 75 MG DAILY 10/14 1000 AC PO Results Last 48 Hrs of Labs/Mics: Laboratory Tests 10/14/16 0653: Anion Gap 6, Estimated GFR > 60, BUN/Creatinine Ratio 19.0, Magnesium 2.2 10/13/16 1310: Troponin I < 0.01 Assessment/Plan Assessment/Plan Assessment: 1. Chest pain syndrome 2. Ventricular ectopy with runs of slow ventricular tachycardia and multifocal DVT 3. Hypertension 4. Anxiety Recommendations: -I had an extended discussion with the patient has family today about the role of stress testing or possible cardiac catheterization. After an extended discussion, we have elected to pursue a dipyridamole nuclear stress test tomorrow. -All the patient's questions were answered about the test. -Echocardiogram pending -Consider giving the patient a dose of anxiolytic such as Xanax or Valium prior to the stress test tomorrow. Continue telemetry? Yes
[2016-10-15 15:56] VITALS: BP 110/60
[2016-10-16 00:31] VITALS: BP 104/61
[2016-10-16 07:50] VITALS: BP 122/82
--- NOTE | 2016-10-16 08:15 | NUR ---
Attempting to page Dr Silvia Trevino #[phone] to question if medications should be given prior to stress test. Patient had been bradycardic overnight in 40's- 50's. At this time BP 146/78, P 58 apically. Attempted to call Dr. Hawk cell phone. Called [facility], spoke with Keila and left message for Dr. Hawk my concerns.
[2016-10-16 08:20] VITALS: BP 146/78
--- NOTE | 2016-10-16 08:50 | NUR ---
Patient to stress test via stretcher. Family at side for emotional support. Tele monitor off. No cardiac medications were given as this nurse did not speak with a doctor regarding bradycardia. Xanax given as ordered. Notified [facility] Keila of this and will notify Dr. Hawk.
--- NOTE | 2016-10-16 08:51 | PN- Housestaff ---
Subjective Follow-up For: Shortness of breath Tele-Events Since Last Visit: Sinus bradycardia overnight with heart rates ranging from 40-50, otherwise normal sinus rhythm, no ectopies are nonsustained atrial tachycardia seen Subjective: Patient is nothing by mouth for a Persantine stress test this a.m. Denies chest pain, palpitations, shortness of breath. No overnight he was reported. Review of Systems Constitutional: Reports: see HPI. Objective Last 24 Hrs of Vital Signs/I&O Vital Signs Date Time Temp Pulse Resp B/P Pulse O2 O2 Flow FiO2 Ox Delivery Rate 10/16 1120 66 130/84 10/16 0820 58 146/78 10/16 0750 97.7 56 16 122/82 97 Room Air 10/16 0031 98.1 63 20 104/61 94 Room Air 10/15 1556 98.3 60 20 110/60 96 Room Air Intake & Output 10/16 1600 10/16 0800 10/16 0000 Intake Total 0 410 Output Total Balance 0 410 Intake, IV 0 10 Intake, Oral 0 400 Number 0 0 Bowel Movements Physical Exam General Appearance: Alert, Oriented X3, Cooperative, No Acute Distress Skin: No Rashes HEENT: Mucous Membr. moist/pink Cardiovascular: Regular Rate, Normal S1, Normal S2, No Murmurs Lungs: Clear to Auscultation, Normal Air Movement Abdomen: Normal Bowel Sounds, Soft, No Tenderness Neurological: Normal Gait, Normal Speech Extremities: No Clubbing, No Cyanosis, No Edema Current Medications: Current Medications Sig/Maggie Start time Last Medication Dose Route Stop Time Status Admin Acetaminophen 650 MG .STK-MED ONE 10/15 2040 DC PO 10/15 2041 Acetaminophen 650 MG Q6P PRN 10/13 44 AC 10/16 PO 1124 Alprazolam 0.5 MG ONCE ONE 10/17 799 DC 10/16 PO 10/16 0801 0810 Aspirin Buffered 81 MG DAILY 10/13 1000 AC 10/16 PO 1121 Atorvastatin Calcium 20 MG 1700 10/13 1700 AC 10/15 PO 1623 Buspirone HCl 15 MG AT BEDTIME NEED.. 10/13 004 AC 10/15 PO 2207 Diltiazem HCl 360 MG DAILY 10/13 999 AC 10/16 PO 1121 Dipyridamole 60 MG ONE ONE 10/16 09 DC Dextrose/Water 28 ML IV 10/16 0904 Heparin Sodium 5,000 UNIT Q8 10/13 0027 AC 10/16 (Porcine) SC 0645 Hydrochlorothiazide 12.5 MG DAILY 10/13 1000 AC 10/16 PO 1121 Lidocaine/Diphenhydr/ 10 ML Q6PRN PRN 10/13 1215 AC 10/15 Alum/Mg/Simeth PO 220 Lisinopril 10 MG DAILY 10/13 1000 AC 10/16 PO 1121 Melatonin 3 MG AT BEDTIME NEED.. 10/13 2215 AC 10/15 PO 220 Metoprolol Succinate 75 MG DAILY 10/14 1000 AC 10/16 PO 1120 Last 24 Hrs of Lab/Julio Results Last 24 Hrs of Labs/Mics: Laboratory Tests 10/16/16 0630: Anion Gap 7, Estimated GFR > 60, BUN/Creatinine Ratio 18.3, Magnesium 2.1 Assessment/Plan Assessment: Patient is a 66 year old male, with PMH of HTN, anxiety, vertigo, recent admission in Jul 2016 with chest pain, who is brought to the ED due to experiencing chest tightness and pressure accompanied by difficulty breathing. Symptoms improved with Buspar. Patient has had multiple episodes of Vtach in the ED with no symptoms. He is admitted to telemetry floor for monitoring and to rule out ACS. Patient currently nothing by mouth for a Persantine stress test this a.m. Problem list and plan: 1. Acute onset chest tightness - Troponin 3 has been negative -Telemetry did not show any evidence of ventricular ectopies after increase of metoprolol to 75 mg - There was no EKG evidence of stress-induced medical ischemia. A nuclear test pending. 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 -We will continue aspirin 2. Hypertension - Blood pressure within normal limits -We'll continue hydrochlorothiazide, diltiazem, lisinopril 3. Hyperlipidemia - Was started on statins which we will continue 4. History of anxiety - Continue buspirone Diet heart healthy DVT px with SC heparin FULL CODE Problem List: 1. Ventricular tachycardia 2. Chest pain 3. Anxiety 4. Hypertension Pain Ratin Pain Location: none Pain Goal: Remain pain free Pain Plan: no need for meds Tomorrow's Labs & Rationales: Possible discharge today
[2016-10-16] MEDS ORDERED: ASPIRIN EC81 M1 PO (10:26)
[2016-10-16] MEDS ORDERED: TOPROL XL25 M1 PO (10:26)
--- NOTE | 2016-10-16 10:26 | Patient Discharge Instructions ---
Discharge Instructions General Discharge Information You were seen/treated for: Chest pressure Special Instructions: 1.Follow up with your PCP in a week upon discharge 2. FOllow up with cardiology in a week up on discharge Diet Recommended Diet: Heart Healthy Activity Full Activity/No Limits: Yes Acute Coronary Syndrome Inclusion Criteria At DC or during hospital stay patient has or had the following: ACS DIAGNOSIS No Discharge Core Measures Meds if any: Prescribed or Continued at Discharge DREW/ARB if EF <40% No (normal EF) Aspirin Yes Beta-Darshana Yes Statin Yes Meds if any: NOT Prescribed or Continued at Discharge Congestive Heart Failure Inclusion Criteria At DC or during hospital stay patient has or had the following: CHF DIAGNOSIS No Discharge Core Measures Meds if any: Prescribed or Continued at Discharge Meds if any: NOT Prescribed or Continued at Discharge Cerebrovascular accident Inclusion Criteria At DC or during hospital stay patient has or had the following: CVA/TIA Diagnosis No Discharge Core Measures Meds if any: Prescribed or Continued at Discharge Meds if any: NOT Prescribed or Continued at Discharge Venous thromboembolism Inclusion Criteria VTE Diagnosis No VTE Type NONE VTE Confirmed by (Test) NONE Discharge Core Measures - Per Current guidelines, there needs to be overlap - treatment for the first 5 days of Warfarin therapy. - If discharged on Warfarin prior to 5 days of - overlap therapy, the patient will need to be - assessed for post discharge needs including - *Post discharge parental anticoagulation - *Warfarin and/or parental anticoagulation education - *Follow up date to check INR post discharge At least 5 days overlap therapy as Inpatient No Meds if any: Prescribed or Continued at Discharge Note: Overlap Therapy is Warfarin and Anticoagulant Meds if any: NOT Prescribed or Continued at Discharge
--- NOTE | 2016-10-16 10:37 | PN- Att Addend ---
Attending Addendum Attending Brief Note No New issues. Patient went down for his Persantin stress, spoke to Dr. Hawk , he did okay, now having his pictures taken if no new complaints and the results are satisfactory, then will discharge later on today. His vital signs are stable no major changes on physical Current Medications Sig/Maggie Start time Last Medication Dose Route Stop Time Status Admin Acetaminophen 650 MG .STK-MED ONE 10/15 2040 DC PO 10/15 204 Acetaminophen 650 MG Q6P PRN 10/13 0045 AC 10/15 PO 2100 Alprazolam 0.5 MG ONCE ONE 10/17 799 DC 10/16 PO 10/16 0801 0810 Aspirin Buffered 81 MG DAILY 10/13 1000 AC 10/15 PO 1036 Atorvastatin Calcium 20 MG 1700 10/13 1700 AC 10/15 PO 1623 Buspirone HCl 15 MG AT BEDTIME NEED.. 10/13 0045 AC 10/15 PO 2207 Diltiazem HCl 360 MG DAILY 10/13 1000 AC 10/15 PO 1034 Dipyridamole 60 MG ONE ONE 10/16 899 DC Dextrose/Water 28 ML IV 10/16 09 Heparin Sodium 5,000 UNIT Q8 10/13 0027 AC 10/16 (Porcine) SC 0645 Hydrochlorothiazide 12.5 MG DAILY 10/13 1000 AC 10/15 PO 1036 Lidocaine/Diphenhydr/ 10 ML Q6PRN PRN 10/13 1215 AC 10/15 Alum/Mg/Simeth PO 2207 Lisinopril 10 MG DAILY 10/13 1000 AC 10/15 PO 1036 Melatonin 3 MG AT BEDTIME NEED.. 10/13 2215 AC 10/15 PO 2207 Metoprolol Succinate 75 MG DAILY 10/14 1000 AC 10/15 PO 1142 Laboratory Tests 10/16/16 0630: Anion Gap 7, Estimated GFR > 60, BUN/Creatinine Ratio 18.3, Magnesium 2.1 Vital Signs Date Time Temp Pulse Resp B/P Pulse O2 O2 Flow FiO2 Ox Delivery Rate 10/16 0820 58 146/78 10/16 0750 97.7 56 16 122/82 97 Room Air
--- NOTE | 2016-10-16 11:15 | NUR ---
Patient back from stress test. Alert oriented x3. Setteled into room. Tele monitor placed back on. Call naik in reach.
--- NOTE | 2016-10-16 13:00 | NUR ---
To Nuclear medicine via stretcher for 2nd part of stress lab. Patient alert oriented x3. No complaints. Tele monitor off.
--- NOTE | 2016-10-16 13:12 | IV DIPYRIDAMOLE NUCLEAR STRESS ---
Clinical Diagnosis: Chest pain, R/O ischemia Core Microarchitect: Deonna Jones Date of Service: 10/16/16 IV DIPYRIDAMOLE INFUSED: 60 mg IV AMINOPHYLLINE INFUSED: 125 mg PATIENT WEIGHT: 229 lbs INTERPRETATION: The patient's baseline EKG showed normal sinus rhythm, premature ventricular contractions, STT changes at 60 BPM. Baseline B/P 140/90. The patient received 60 mg of dipyridamole infused intravenously over a 4 minute period. TC-99M or Myoview was injected after dipyridamole infusion. The patient tolerated the infusion well. There were no EKG changes seen following pharmacologic infusion. Arrhythmias: premature ventricular contractions IMPRESSION: The test was supervised by the interpreting Host Coordinator, who was in attendance during the entire test. No EKG evidence of stress induced myocardial ischemia. See separately dictated Nuclear Report.
--- NOTE | 2016-10-16 13:56 | PN- Cardiology ---
Subjective Subjective: Doing well today, in good spirits, no further symptoms. Awaiting Persantine nuclear stress test results for further plans. Objective Vital Signs and I&Os Vital Signs Date Time Temp Pulse Resp B/P Pulse O2 O2 Flow FiO2 Ox Delivery Rate 10/16 1120 66 130/84 10/16 0820 58 146/78 10/16 0750 97.7 56 16 122/82 97 Room Air 10/16 0031 98.1 63 20 104/61 94 Room Air 10/15 1556 98.3 60 20 110/60 96 Room Air Intake & Output 10/16 1600 10/16 0800 10/16 0000 10/15 1600 10/15 0810/15 0000 Intake Total 0 410 560 240 460 Output Total Balance 0 410 560 240 460 Intake, IV 0 10 10 Intake, Oral 0 400 560 240 450 Number 0 0 0 Bowel Movements Current Medications: Current Medications Sig/Maggie Start time Last Medication Dose Route Stop Time Status Admin Acetaminophen 650 MG .STK-MED ONE 10/15 2040 DC PO 10/15 204 Acetaminophen 650 MG Q6P PRN 10/13 0045 AC 10/16 PO 1124 Alprazolam 0.5 MG ONCE ONE 10/16 0800 DC 10/16 PO 10/16 0801 0810 Aspirin Buffered 81 MG DAILY 10/13 1000 AC 10/16 PO 1121 Atorvastatin Calcium 20 MG 1700 10/13 1700 AC 10/15 PO 1623 Buspirone HCl 15 MG AT BEDTIME NEED.. 10/13 0045 AC 10/15 PO 2207 Diltiazem HCl 360 MG DAILY 10/13 1000 AC 10/16 PO 1121 Dipyridamole 60 MG ONE ONE 10/16 0900 DC Dextrose/Water 28 ML IV 10/16 0904 Heparin Sodium 5,000 UNIT Q8 10/13 0027 AC 10/16 (Porcine) SC 0645 Hydrochlorothiazide 12.5 MG DAILY 10/13 1000 AC 10/16 PO 1121 Lidocaine/Diphenhydr/ 10 ML Q6PRN PRN 10/13 1215 AC 10/15 Alum/Mg/Simeth PO 2207 Lisinopril 10 MG DAILY 10/13 1000 AC 10/16 PO 1121 Melatonin 3 MG AT BEDTIME NEED.. 10/13 2215 AC 10/15 PO 2207 Metoprolol Succinate 75 MG DAILY 10/14 1000 AC 10/16 PO 1120 Results Last 48 Hrs of Labs/Mics: Laboratory Tests 10/16/16 0630: Anion Gap 7, Estimated GFR > 60, BUN/Creatinine Ratio 18.3, Magnesium 2.1 Assessment/Plan Assessment/Plan Assessment: 1. Chest pain syndrome 2. Ventricular ectopy with runs of slow ventricular tachycardia and multifocal DVT 3. Hypertension 4. Anxiety Recommendations: -The patient has been stable. No further symptoms. Persantine nuclear stress test performed this morning. Awaiting results. -If the nuclear stress test results are normal, the patient can be discharged home later today on his current medication regimen. -If the nuclear images are abnormal, we will need to have further discussion about the possibility of cardiac catheterization. -For now, continue out of bed and ambulating as tolerated. Continue telemetry? Yes
--- NOTE | 2016-10-16 14:39 | NUR ---
BACK FROM NUCLEAR MEDICINE. FAMILY AT BEDSIDE. PATIENT ALERT ORIENTED X3. NO COMPLAINTS. PLACED BACK ON TELE MONITOR.
--- NOTE | 2016-10-16 14:57 | NUCLEAR MEDICINE REPORT ---
PERSANTINE STRESS AND RESTING SPECT MYOCARDIAL PERFUSION IMAGING STUDY WITH GATED SPECT IMAGES: CLINICAL INDICATION: Chest pain. PROCEDURE: Regional myocardial perfusion was assessed using a 1 day protocol. Stress images were obtained on 10/16/2016 following the intravenous administration of 27.3 mCi Tc 99m Myoview. Stress consisted of 60 mg Persantine given intravenously. Following the sestamibi injection, 125 mg aminophylline was given intravenously. Rest images were obtained 10/16/2016 following the intravenous administration of 42.7 mCi Technetium 99m Myoview. Single photon emission tomographic (SPECT) images were obtained. SPECT images were acquired in a 64 x 64 matrix of 64 projections over 180 degrees. These were reconstructed into standard short axis, horizontal and vertical long axis cardiac projections. FINDINGS: The post stress images demonstrate the left ventricular chamber to be normal in size. There is homogeneous distribution of activity in the left ventricular myocardium with no regions of abnormally decreased activity noted. The resting images also demonstrate homogeneous distribution of activity in the left ventricular myocardium, and are not significantly changed from the post stress images. The images were obtained using a gated SPECT technique, which permits visualization of wall motion and calculation of the left ventricular ejection fraction. No left ventricular wall motion abnormalities are noted on either the stress or resting study. The calculated left ventricular ejection fraction is 53% on the stress study. No previous study is available for comparison. IMPRESSION: Normal Persantine stress and resting myocardial perfusion study with normal left ventricular wall motion and ejection fraction.
[2016-10-16 16:02] VITALS: BP 100/60
--- NOTE | 2016-10-16 17:11 | ECHOCARDIOGRAM REPORT ---
RADHA RAMOS Age: 66 : 1950 Gender: M Exam Date: 10/15/2016 19:58 Exam Location: 1 [address] Ht (in): 69 Wt (lb): 229 BSA: 2.28 BP: 132 / 80 Ordering Physician: DANIELLE HIGUERA MD Referring Physician: Gem Hawk MD Technologist: Candelaria Lyle [facility] Room Number: [id number] Indications: ARRHYTHMIAS Rhythm: Sinus Technical Quality: Fair, Technically difficult study FINDINGS Left Ventricle Normal size left ventricle. No obvious regional wall motion abnormalities. Normal left ventricular ejection fraction estimated at 55-60%. Right Ventricle Right ventricle not well visualized, grossly normal. Right Atrium Normal right atrial size. Left Atrium Left atrial size at the upper limits of normal. Mitral Valve Mitral valve thickened. Trace mitral regurgitation. Aortic Valve Trileaflet aortic valve. Diffuse thickening of the aortic valve cusps with reduced excursion. No aortic stenosismild aortic regurgitation. Tricuspid Valve Tricuspid valve not well visualized, grossly normal. Trace to mild tricuspid regurgitation. Pulmonic Valve Pulmonic valve not well visualized, grossly normal. Mild pulmonic regurgitation. Pericardium No pericardial effusion. Great Vessels Aortic root and proximal ascending aorta not well visualized, grossly normal. CONCLUSIONS 1. This was a technically difficult and limited examination due to the patient's body habitus. 2. Moderate aortic sclerosis is present with mild aortic insufficiency. 3. Mitral leaflet thickening is present with minimal mitral insufficiency. 4. There is no pericardial fluid detected. 5. The left ventricular chamber size is normal with mild concentric hypertrophy and a normal ejection fraction with no obvious resting wall motion abnormalities. 6. Minimal to mild tricuspid and pulmonic insufficiency are present with no evidence of pulmonary hypertension. Gem Hawk M.D. (Electronically Signed) Final Date: 16 October 2016 17:11 MEASUREMENTS (Male / Female) Normal Values 2D ECHO LV Diastolic Diameter PLAX 3.3 cm 4.2 - 5.9 / 3.9 - 5.3 cm LV Systolic Diameter PLAX 2.0 cm 2.1 - 4.0 cm LV Fractional Shortening PLAX 39.4 % 25 - 46 % LV Ejection Fraction 2D Teich 71.2 % IVS Diastolic Thickness 1.3 cm LVPW Diastolic Thickness 1.3 cm LV Relative Wall Thickness 0.8 RV Internal Dim ED PLAX 3.2 cm 1.9 - 3.8 cm LVOT Diameter 2.1 cm Aortic Root Diameter 2.8 cm LA Systolic Diameter LX 2.5 cm 3.0 - 4.0 / 2.7 - 3.8 cm LA Volume 34.0 cm 18 - 58 / 22 - 52 cm Ascending Aorta Diameter 3.3 cm DOPPLER AV Peak Velocity 191.0 cm/s AV Peak Gradient 14.6 mmHg AV Mean Velocity 136.0 cm/s AV Mean Gradient 8.0 mmHg AV Velocity Time Integral 36.8 cm LVOT Peak Velocity 103.0 cm/s LVOT Peak Gradient 4.2 mmHg LVOT Mean Velocity 70.0 cm/s LVOT Mean Gradient 2.0 mmHg LVOT Velocity Time Integral 20.4 cm LVOT Stroke Volume 70.7 cm AV Area Cont Eq vti 1.9 cm AV Area Cont Eq pk 1.9 cm MV Peak Velocity 91.7 cm/s MV Peak Gradient 3.4 mmHg MV Mean Velocity 56.6 cm/s MV Mean Gradient 1.0 mmHg Mitral E Point Velocity 77.5 cm/s Mitral A Point Velocity 80.0 cm/s Mitral E to A Ratio 1.0 MV PHT Velocity 97.3 cm/s MV Deceleration Shelby 281.0 cm/s MV Pressure Half Time 103.9 ms MV Area PHT 2.1 cm MV Deceleration Time 304.0 ms TR Peak Velocity 103.0 cm/s TR Peak Gradient 4.2 mmHg Right Atrial Pressure 5.0 mmHg Pulmonary Artery Systolic Pressu 9.2 mmHg Right Ventricular Systolic Press 9.2 mmHg PV Peak Velocity 117.0 cm/s PV Peak Gradient 5.5 mmHg PV Mean Velocity 75.0 cm/s PV Mean Gradient 3.0 mmHg PV Velocity Time Integral 23.9 cm LV E' Lateral Velocity 9.6 cm/s Mitral E to LV E' Lateral Ratio 8.1 LV E' Septal Velocity 5.7 cm/s Mitral E to LV E' Septal Ratio 13.7
[2016-10-16] MEDS ORDERED: ATORVASTATIN CA20 M1 PO (17:21)
--- NOTE | 2016-10-17 14:10 | Discharge Summary ---
Visit Information Visit Dates Admission Date: 10/12/16 Discharge Date: 10/16/16 Hospital Course Course Attending Physician: DURAN BEE MD Primary Care Physician: KIRILL TOBIAS MD Consulting Request: Consulting Specialty: Cardiology Consulting Physician: Dr. Gonzalez Reason for Consult: chest pain Hospital Course: 66-year-old white male with previous history of chest pain and hypertension oral by myself and Dr. Gonzalez. After her last admission he was followed as an outpatient at that time he refused to chemical stress test but he comes back in with chest pain shortness of breath some PVCs again was seen by cardiology was Area EKGs serial cardiac enzymes negative finally agreed to a Persantine test negative after the results came back patient was discharged to be followed as an outpatient by hitch technician and myself tinea medications Complications: None Allergies: Coded Allergies: Penicillins (Intermediate, HIVES 09/05/15) Significant Procedures: patient had Persantin stress test SERVICE DATE: 10/16/16-799 EXAM TYPE: CARD - DIPYRIDAMOLE STRESS W/NUC IMAG Clinical Diagnosis: Chest pain, R/O ischemia Court Clerk: Deonna Jones Date of Service: 10/16/16 IV DIPYRIDAMOLE INFUSED: 60 mg IV AMINOPHYLLINE INFUSED: 125 mg PATIENT WEIGHT: 229 lbs INTERPRETATION: The patient's baseline EKG showed normal sinus rhythm, premature ventricular contractions, STT changes at 60 BPM. Baseline B/P 140/90. The patient received 60 mg of dipyridamole infused intravenously over a 4 minute period. TC-99M or Myoview was injected after dipyridamole infusion. The patient tolerated the infusion well. There were no EKG changes seen following pharmacologic infusion. Arrhythmias: premature ventricular contractions IMPRESSION: The test was supervised by the interpreting Marketing Sales Manager, who was in attendance during the entire test. No EKG evidence of stress induced myocardial ischemia. See separately dictated Nuclear Report. Pertinent Lab Results: Laboratory Tests 10/16/16 0630: Anion Gap 7, Estimated GFR > 60, BUN/Creatinine Ratio 18.3, Magnesium 2.1 Laboratory Tests 10/12/16 2208: Anion Gap 13, Estimated GFR > 60, BUN/Creatinine Ratio 21.0, Glucose 114 H, Calcium 9.3, Magnesium 1.9, Total Bilirubin 0.5, AST 21, ALT 39, Alkaline Phosphatase 98, Troponin I < 0.01, Total Protein 7.7, Albumin 4.0, Globulin 3.7, Albumin/Globulin Ratio 1.1, TSH 2.500, CBC w Diff NO MAN DIFF REQ, RBC 5.32, MCV 83.4, MCH 27.5, RDW 15.0 H, MPV 7.3 L, Gran % 68.6, Lymphocytes % 20.6, Monocytes % 9.1, Eosinophils % 1.4, Basophils % 0.3, Absolute Granulocytes 8.3 H, Absolute Lymphocytes 2.5, Absolute Monocytes 1.1 H, Absolute Eosinophils 0.2 , Absolute Basophils 0, PUBS MCHC 32.9 L 10/14/16 0653: Anion Gap 6, Estimated GFR > 60, BUN/Creatinine Ratio 19.0, Magnesium 2.2 10/13/16 1310: Troponin I < 0.01 10/13/16 0600: Troponin I < 0.01, Triglycerides 133, Cholesterol 199, LDL Cholesterol, Calc 137 H, HDL Cholesterol 36 L, Cholesterol/HDL Ratio 5 H 10/16/16 0630: Anion Gap 7, Estimated GFR > 60, BUN/Creatinine Ratio 18.3, Magnesium 2.1 Disposition Summary Disposition Principal Diagnosis: Chest pain Hypertension Anxiety. Additional Diagnosis: Vertigo Mild mental retardation Discharge Disposition: home or self care Discharge Instructions General Discharge Information Code Status: Full Code Patient's Diet: Healthy heart Patient's Activity: As tolerated Follow-Up Instructions/Appts: Follow-up with Dr. Tobias and Dr. Gnozalez Medications at Discharge Discharge Medications: Stop taking the following medications: Metoprolol Succinate (Metoprolol Succinate) 50 MG TAB.ER.24H ORAL DAILY Days = 90 Continue taking these medications: Lisinopril/Hydrochlorothiazide (Lisinopril-Hctz 10-12.5 MG Tab) 10 MG-12.5 MG TABLET 1 Tablet ORAL DAILY Comments: Last Taken: 10/16/16 Time: 11:30 Am Meclizine HCl (Meclizine HCl) 25 MG TABLET 1 Tablet ORAL THREE TIMES DAILY Days = 10 Comments: NOT GIVEN Buspirone HCl (Buspirone HCl) 15 MG TABLET 1 Tablet ORAL AT BEDTIME as needed for ANXIETY Days = 30 Comments: Last Taken: 10/15/16 Time: 10 PM Triamcinolone Acetonide (Triamcinolone Acetonide) 0.025 % OINT...G. 1 Application On the skin TWICE DAILY as needed for RASH Instructions: apply to affected area(s) Comments: NOT GIVEN IN HOSPITAL Diltiazem HCl (Cardizem Cd) 360 MG CAP.ER.24H 1 Capsule ORAL DAILY Comments: Last Taken: 10/16/16 Time: 11:30 AM Start taking the following new medications: Metoprolol Succ XL (Toprol XL) 25 MG TAB 75 Milligram ORAL DAILY Qty = 30 No Refills Comments: Last Taken: 10/16/16 Time: 11:30 AM Aspirin (Ecotrin*) 81 MG TABLET.DR 81 Milligram ORAL DAILY Qty = 30 No Refills Comments: Last Taken: 10/16/16 Time: 11:30 AM Atorvastatin Calcium (Atorvastatin Calcium) 20 MG TABLET 20 Milligram ORAL 5 PM Qty = 30 No Refills Comments: Last Taken: 10/16/16 Time: 4:30 PM Copies To: Surinder GONZALEZ MD; KIRILL TOBIAS MD Attending Review Statement Documenting Attending: KIRILL TOBIAS MD
== END 2016-10-16 18:20 | DRG 313 ==
LOC: ENRESERVDT → ENRESERVTM → ERH 21:16 → 1NO 23:30 → ERHI 23:30 → 1NO 10-13 01:21
PROVIDERS: Internal Medicine; Physician Assistant; ADMIT Internal Medicine
DX: R07.9 Chest pain, unspecified (principal); I47.2 Ventricular tachycardia; I10 Essential (primary) hypertension; F41.9 Anxiety disorder, unspecified; F70 Mild intellectual disabilities; R42 Dizziness and giddiness
CPT/HCPCS: 1NP; ERO; 36415; 78452; 82436; 93005; 93010; 93016; 93017; 93306; A9502; J1245; J1644; J3490

== ENCOUNTER 2017-07-20 14:59 | Emergency (ER) | payer OTHER, MEDICARE ==
[~2017-07-20] VITALS: Ht 175.3 cm; Wt 108.9 kg
[~2017-07-20 14:59] MED LIST changes: +ASPIRIN EC81 M1 PO; +ATORVASTATIN CA20 M1 PO; +BUSPIRONE HCL15 M1 PO; +CARDIZEM CD360 M1 PO; +DILTIAZEM 24HR360 MG PO; +MECLIZINE HCL25 MG PO; +METOPROLOL SUCC50 M2 PO; +TOPROL XL25 M1 PO; +TRIAMCINOLONE A80 GM TOP
--- NOTE | 2017-07-20 15:25 | ED NEURO DEFICIT/STROKE ---
See Addendum History of Present Illness General Chief Complaint: Syncope and Near-Syncope Stated Complaint: NEAR SYNCOPE Source: patient, family Exam Limitations: no limitations Vital Signs & Intake/Output Vital Signs & Intake/Output Vital Signs Date Time Temp Pulse Resp B/P B/P Pulse O2 O2 Flow FiO2 Mean Ox Delivery Rate 07/20 2148 98.1 93 20 136/94 99 Room Air 07/20 1937 97.8 80 16 176/96 98 Room Air 07/20 1734 97.6 72 16 144/94 97 Room Air 07/20 1626 68 16 166/96 95 Room Air 07/20 1553 Room Air 07/20 1547 77 210/110 07/20 1509 97.6 77 16 210/110 96 Room Air ED Intake and Output 07/21 0000 07/20 1200 Intake Total Output Total Balance Patient 240 lb Weight Weight Reported by Patient Measurement Method Allergies Coded Allergies: Penicillins (Intermediate, HIVES 09/05/15) Reconcile Medications Aspirin (Ecotrin*) 81 MG TABLET.DR 81 MG PO DAILY HEART Atorvastatin Calcium 20 MG TABLET 20 MG PO 1700 HEART Buspirone HCl 15 MG TABLET 1 TAB PO AT BEDTIME PRN ANXIETY (Reported) Diltiazem HCl (Cardizem Cd) 360 MG CAP.ER.24H 1 CAP PO DAILY HEART HEALTH ( Reported) Lisinopril/Hydrochlorothiazide (Lisinopril-Hctz 10-12.5 MG Tab) 10 MG-12.5 MG TABLET 1 TAB PO DAILY HEART/BP (Reported) Meclizine HCl 25 MG TABLET 1 TAB PO TID DIZZYNESS (Reported) Metoprolol Succ XL (Toprol XL) 25 MG TAB 75 MG PO DAILY BLOOD PRESSURE/HR Triamcinolone Acetonide 0.025 % OINT...G. 1 MICHAEL TOP BID PRN RASH (Reported) apply to affected area(s) Triage Note: BIBA FOR VERTIGO AND FEELING LIKE HE WAS GOING TO PASS OUT. HAS HISTORY OF VERTIGO AND STATES SYMPTOMS TODAY ARE SIMILAR TO PAST VERTIGO. NO LOC. STATES HE NEEDED ASSISTANCE TO MOVE AROUND DURING EPISODE. UPON ARRIVAL PT AWAKE, ALERT, ORIENTED. MOVES ALL EXTREMITITES. SPEECH CLEAR. DR IRELAND IN TO SEE Triage Nurses Notes Reviewed? yes HPI: 67 yo M PMH HTN, anxiety presenting with vertigo, pre-syncope. Acute onset vertignous dizziness starting 30-45 mins prior to arrival, waxing and waning intensity, improving. Associated pre-syncopal lightheadedness, worse with standing, patient was unsteady on his feet, felt like he was going to pass out, EMS called, on arrival patient awake, alert, anxious, ?A-fib on monitor with rates in the 70s, no LOC, diaphoresis, GCS <15, complaints of CP or SOB, on arrival c/o mild vertigo, anxiety, both improving. Denies fevers, chills, chest pain, short of breath, palpitations, abdominal pain, nausea, vomiting, bloody stools, urinary symptoms, headache, neck pain, or focal neurologic symptoms. That he has had vertigo for the last 1-2 years, per patient MRI during workup for vertigo negative, treated with meclizine in the past with improvement. (Keyanna RAMSEY,Palomo) Past History Travel History Traveled to [place] past 21 day No Medical History Any Pertinent Medical History? 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 History of MRSA: No History of VRE: No History of CDIFF: No Influenza Vaccine: 03/08/16 Surgical History Surgical History: BUNION SURGERY right wrist fracture, right inguinal hernia repain in April 2016 Psychosocial History Who do you live with Patient/Self Services at Home None What is your primary language Turkish Tobacco Use: Never used ETOH Use: denies use Illicit Drug Use: denies illicit drug use Family History Family History, If Any: MOTHER FH: myocardial infarction FHx: COPD (chronic obstructive pulmonary disease) FATHER FH: myocardial infarction BROTHER FH: myocardial infarction FHx: COPD (chronic obstructive pulmonary disease) Relation not specified for: FH: diabetes mellitus Hx Contributory? Yes (Keyanna RAMSEY,Palomo) Review of Systems Review of Systems Constitutional: Reports: malaise. EENTM: Reports: no symptoms. Respiratory: Reports: no symptoms. Cardiovascular: Reports: see HPI. GI: Reports: no symptoms. Genitourinary: Reports: no symptoms. Musculoskeletal: Reports: no symptoms. Skin: Reports: no symptoms. Neurological/Psychological: Reports: no symptoms. Hematologic/Endocrine: Reports: no symptoms. Immunologic/Allergic: Reports: no symptoms. All Other Systems: Reviewed and Negative (Keyanna RAMSEY,Palomo) Physical Exam Physical Exam General Appearance: well developed/nourished, no apparent distress, alert, awake , anxious Head: atraumatic Eyes: Bilateral: PERRL, EOMI. Ears, Nose, Throat: normal ENT inspection, moist mucous membrane Neck: normal inspection, full range of motion, no midline tenderness Respiratory: normal breath sounds, no respiratory distress, lungs clear Cardiovascular: regular rate/rhythm, normal peripheral pulses Peripheral Pulses: 2+ radial (R), 2+ radial (L), 2+ dorsalis pedis (R), 2+ dorsalis pedis (L) Gastrointestinal: soft, non-tender Back: normal inspection, no vertebral tenderness Cranial Nerves: PERRL Comments: Neuro: Cranial nerves II through XII intact as tested, no nystagmus with extraocular movements, visual jurado intact, no pronator drift, finger-nose- finger and [id number] testing normal, motor strength 5 out of 5 through bilateral upper and lower extremities, no sensory deficits Core Measures CVA/TIA Diagnosis: Yes Sepsis Present: No Sepsis Focused Exam Completed? No (Keyanna RAMSEY,Palomo) Progress Differential Diagnosis: acute glaucoma, Nina's Palsy, drug intoxication, electrolyte imbalance, encephalitis, hypoglycemia, intracranial Hem., intracranial mass/tumor, meningitis, migraine MARTINEZ, seizure disorder, stroke, subarachnoid Hem., vertebrobasilar insuff. Plan of Care: Orders Procedure Date/time Status Patient Data 07/20 1829 Active Add-on Test (ER Only) 07/[address] in observation 07/20 1813 Active Intake & Output 07/20 1553 Active MAGNESIUM 07/20 1530 Complete TROPONIN LEVEL 07/20 1514 Complete CBC WITHOUT DIFFERENTIAL 07/20 1514 Complete BASIC METABOLIC PANEL 07/20 1514 Complete EKG 07/20 1514 Active Laboratory Tests 07/20/17 1530: Anion Gap 14, Estimated GFR > 60, BUN/Creatinine Ratio 18.9, Glucose 98, Calcium 8.9, Magnesium 2.0, Troponin I < 0.01, CBC w Diff NO MAN DIFF REQ, RBC 5.25, MCV 80.4, MCH 25.9 L, RDW 15.5 H, MPV 7.4, Gran % 68.9, Lymphocytes % 20.7, Monocytes % 7.0, Eosinophils % 2.6, Basophils % 0.8, Absolute Granulocytes 5.3, Absolute Lymphocytes 1.6, Absolute Monocytes 0.5, Absolute Eosinophils 0.2, Absolute Basophils 0.1, PUBS MCHC 32.3 L Physician MDM: 67 yo M PMH HTN, anxiety presenting with vertigo, pre-syncope. Hypertensive to 210 systolic, otherwise VSS, neurologic exam non-focal, NIHSS 0. DDx: Peripheral vertigo (BPPV, menieres, labrynthitis), Central vertigo (CVA, ICH), Arrhythmia. 15:20 discussed differential with patient and , I expressed my concern for hemorrhagic stroke given hypertension and neurologic Sx as well as my concern for CVA ?A-fib not on AC with neurologic Sx, patient declined CT/CTA 3 times despite exhaustive discussion with he and his about benefits of imaging and risks of forgoing imaging including missed MULTIMEDIA MANAGER catastrophy with resultant significant morbidity and possibly . Despite discussion of risks of no MULTIMEDIA MANAGER imaging patient declined CT for unclear reasons, "I just don't need it or want it, I'm fine". Patient aware that he will have to leave against medical advice without appropriate work up, agrees. Patient does not meet criteria for stroke alert given NIHSS 0 with improving symptoms, refusal of head CT so unable to give tPA. ECG sinus rhythm, 2 PVCs, non-ischemic , unchanged from previous. Troponin negative. Labetalol given with improement in blood pressure. CBC with mild anemia at 13.6 around baseline. BMP unremarkable. Frequent PVCs and couplets/triplets on telemetry without ida runs of NSVT. Given meclizine with improvement in dizziness. On re-examination patient unable to ambulate more than 1-2 steps without instability, near falls. Discussed with Dr. Herrera (funeral pre need consultant for Dr. Tobias), willing to admit patient for observation, further evaluation, PT eval if neccessary. The plan of care was discussed with the patient and his sister who expressed agreement and understanding. Initial ED EKG: NSR (Keyanna RAMSEY,Palomo) Departure Departure Disposition: STILL A PATIENT Condition: Stable Clinical Impression Primary Impression: Dizziness Secondary Impressions: Gait instability Referrals: Tommie Tobias MD (PCP/Family) Departure Forms: Customer Survey General Discharge Information Admission Note Spoke With: Izabella Renee MD Documentation of Exam: Documentation of any treatments & extenuating circumstances including Concerns Regarding Discharge (functional status, medication knowledge or non-compliance, living conditions, etc.) that warrant an admission rather than observation: [ Patient presents with vertiginous dizziness and presyncopal episode concerning for CVA or arrhythmia, and emergency department found to have frequent PVCs on telemetry, unable to ambulate without near falls and significant assistance, if discharged the patient has a high likelihood of falling with significant trauma leading to morbidity and possibly , discharged without further cardiac workup the patient might have recurrent arrhythmia with resulting neurologic morbidity and possibly , patient requires admission for telemetry monitoring, further evaluation, possible neurology subspecialty consult, PT evaluation] (Keyanna RAMSEY,Pal[place]) PA/CAMPUS RECRUITING COORDINATOR Co-Sign Statement Statement: ED Attending supervision documentation- [] I saw and evaluated the patient. I have also reviewed all the pertinent lab results and diagnostic results. I agree with the findings and the plan of care as documented in the PA's/CAMPUS RECRUITING COORDINATOR's documentation. [X] I have reviewed the ED Record and agree with the PA's/CAMPUS RECRUITING COORDINATOR's documentation. [] Additions or exceptions (if any) to the PAs/CAMPUS RECRUITING COORDINATOR's note and plan are summarized below: [] (Yovanny RAMSEY,Kim)
[2017-07-20 15:40] LABS: ABSOLUTE BASOPHIL COUNT 0.1 /CUMM (0.0-0.2); ABSOLUTE EOSINOPHIL COUNT 0.2 /CUMM (0.0-0.7); ABSOLUTE GRANULOCYTE CT 5.3 /CUMM (1.4-6.5); ABSOLUTE LYMPH COUNT 1.6 /CUMM (1.2-3.4); ABSOLUTE MONOCYTE COUNT 0.5 /CUMM (0.10-0.60); BASOPHIL % 0.8 % (0.0-2.0); EOSINOPHIL % 2.6 % (0-5); GRANULOCYTE % 68.9 % (42.2-75.2); HEMATOCRIT 42.2 % (42-52); MEAN CORPUSCULAR HGB 25.9 PG (27.0-31.0); MEAN CORPUSCULAR HGB CONC 32.3 G/DL (33.0-37.0); MEAN CORPUSCULAR VOLUME 80.4 FL (80.0-94.0); MEAN PLATELET VOLUME 7.4 FL (7.4-10.4); PLATELET COUNT 322 /CUMM (130-400); RBC DISTRIBUTION WIDTH 15.5 % (11.5-14.5); RED BLOOD CELL CT 5.25 /CUMM (4.70-6.10); WHITE BLOOD CELL COUNT 7.7 /CUMM (4.8-10.8)
--- NOTE | 2017-07-20 20:22 | History & Physical ---
General Information and HPI Allergies/Medications Allergies: Coded Allergies: Penicillins (Intermediate, HIVES 09/05/15) Home Med list Aspirin (Ecotrin*) 81 MG TABLET.DR 81 MG PO DAILY HEART Atorvastatin Calcium 20 MG TABLET 20 MG PO 1700 HEART Buspirone HCl 15 MG TABLET 1 TAB PO AT BEDTIME PRN ANXIETY (Reported) Diltiazem HCl (Cardizem Cd) 360 MG CAP.ER.24H 1 CAP PO DAILY HEART HEALTH ( Reported) Lisinopril/Hydrochlorothiazide (Lisinopril-Hctz 10-12.5 MG Tab) 10 MG-12.5 MG TABLET 1 TAB PO DAILY HEART/BP (Reported) Meclizine HCl 25 MG TABLET 1 TAB PO TID DIZZYNESS (Reported) Metoprolol Succ XL (Toprol XL) 25 MG TAB 75 MG PO DAILY BLOOD PRESSURE/HR Triamcinolone Acetonide 0.025 % OINT...G. 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 self Services at Home: None Primary Language: Venezuelan ETOH Use: denies use Illicit Drug Use: denies illicit drug use Functional Ability ADLs Independent: dressing, eating, toileting, bathing. Ambulation: independent Core Measures/Misc (03/24) Cerebrovascular Accident CVA/TIA Diagnosis: Yes
[2017-07-20 21:48] VITALS: BP 136/94
== END 2017-07-20 22:13 | disposition left against medical advice (07) ==
LOC: ERH 14:59 → ERHI 18:13 → ERH 18:13 → ENRESERV 19:23 → CANRESERV 19:23 → ENTRNSPT 20:49 → ERHI 22:04 → CMPTRNSPT 07-21 07:04
PROVIDERS: Student in an Organized Health Care Education/Training Program
DX: R42 Dizziness and giddiness (principal); R26.81 Unsteadiness on feet
CPT/HCPCS: 93005; 93010; 96374